=== PATIENT | male | born 1930 | race Caucasian/White ===

== ENCOUNTER 2017-11-21 15:54 | Inpatient (IN) ==
[2017-11-21] MEDS ORDERED: Tdap (Boostrix) Vaccine 0.5 ML SYRINGE IM ONE (16:21)
--- NOTE | 2017-11-21 16:24 | Emergency Department Note ---
Disposition Clinical Impression: Frail elderly, Fall, Dislocation, finger, Facial laceration, Nasal fracture, Foreign body, eye, Dehydration, Dementia, UTI (urinary tract infection), Abnormal EKG Disposition: Admitted As Inpatient General Adult HPI - General Chief complaint: ED Fall Stated complaint: fall Time Seen by Provider: 11/21/17 16:10 Source: patient, EMS Limitations: altered mental status - History of Present Illness HPI Narrative: 87-year-old male reports emergency department with his , there is concern for a fall. He was approaching his doctor's office and tripped and fell onto his face and injured his right hand. The patient was in his usual state of health prior to the fall. He has a history of dementia but is cared for at home by his . The patient denies antecedent chest pain or shortness of breath. There is no history of syncope. No seizure-like activity. No slurred speech prior or post no history of difficulty moving the arms or legs independently, no unilateral arm or leg weakness or numbness. No facial droop. Patient's last tetanus shot is unknown. Abrasions and lacerations are described on the face, finger deformity on the right. The patient denies abdominal pain shortness of breath back pain or lower extremity pain or left upper extremity pain. He is currently not anticoagulated. The patient has a history of dementia and is generally confused per his . She reports he was doing well until he tripped and fell. She describes a simple mechanical fall. Pain Scale: 4 - Related Data Home Medications Medication Instructions Recorded Confirmed Aspirin Enteric Coated [Aspirin EC] 81 mg PO QAM 11/12/14 11/21/17 Cholecalciferol (Vitamin D3) 1,000 unit PO BID 11/21/17 11/21/17 [Vitamin D] Donepezil HCl [Donepezil HCl Odt] 5 mg PO HS 11/21/17 11/21/17 Donepezil HCl [Donepezil HCl Odt] 10 mg SL HS 11/21/17 11/21/17 Ibuprofen [Advil] 200 mg PO DAILY PRN 11/21/17 11/21/17 Pravastatin Sodium [Pravastatin 10 mg PO DAILY 11/21/17 11/21/17 Sodium] Quetiapine Fumarate [Seroquel] 25 mg PO HS 11/21/17 11/21/17 Thiamine HCl [Vitamin B-1] 50 mg PO DAILY 11/21/17 11/21/17 Allergies Allergy/AdvReac Type Severity Reaction Status Date / Time codeine Allergy unknown Verified 08/28/17 17:26 Oxycodone [From Percocet] Allergy unknown Verified 08/28/17 17:26 tramadol Allergy Anaphylaxis Verified 08/28/17 17:26 All systems ED: reviewed and negative except as stated. Past Medical History - Past Medical History Medical history: Reports: arthritis, cancer, CVA, hypertension Surgical history: Reports: hip replacement Psychiatric history: Reports: no psych history - Social History Smoking Status: Never smoker Smokeless Tobacco Status: No Alcohol use: Reports: none Drug use: Reports: none Physical Exam - General Limitations: altered mental status General appearance: alert, in no apparent distress - Head Head exam: normocephalic, normal inspection, other (Multiple facial abrasions and scrapes are noted particularly on the right.) - Eye Eye exam: Present: normal appearance, PERRL, EOMI, miosis, other (No gross ocular abnormality, no evidence of penetrating wound particularly on the right, the globe appears to be intact, there is swelling and edema and a comprehensive ocular examination the patient is not possible.). Absent: scleral icterus, conjunctival injection, nystagmus - ENT ENT exam: normal exam, normal oropharynx, mucous membranes moist, TM's normal bilaterally, normal external ear exam - Neck Neck exam: Present: normal inspection, full ROM, trachea midline. Absent: tenderness, meningismus - Chest Chest inspection: Present: normal inspection, symmetric chest wall rise. Absent : tenderness - Respiratory Respiratory exam: Present: normal lung sounds bilaterally, respiratory distress. Absent: wheezes, stridor - Cardiovascular Cardiovascular exam: Present: regular rate, normal rhythm, normal heart sounds - Abdominal Exam Abdominal exam: Present: soft, Non-Tender, diminished bowel sounds. Absent: tenderness, distention, guarding, rebound, rigidity, normal bowel sounds - Extremities Exam Extremities exam: Present: normal inspection, full ROM, normal capillary refill , other (Minor abrasion right elbow, Right fourth digit obvious deformity at the proximal interphalangeal joint. All extremities are warm and well perfused show no significant trauma otherwise. There is a good range of motion throughout the ankles knees hips wrists elbows and shoulders. No evidence of neurovascular neuromuscular compromise in any extremity.). Absent: tenderness, pedal edema, joint swelling, calf tenderness - Expanded Lower Extremity Exam Neurovascular/Tendon exam: Present: normal capillary refill. Absent: pulse deficit, motor deficit, sensory deficit, tendon deficit, extremity cold to touch , pallor - Back Exam Back exam: Present: normal inspection, full ROM. Absent: tenderness, CVA tenderness (R), CVA tenderness (L), paraspinal tenderness, vertebral tenderness - Neurological Exam Neurological exam: Present: alert, CN II-XII intact, other (The patient is able to follow basic commands appropriately, an element of dementia is noted. [place] [address]). Absent: motor sensory deficit - Skin Skin exam: Present: warm, dry, normal color. Absent: rash, cyanosis, diaphoresis, erythema, pallor, mottled Course Vital Signs Temperature 97.7 F 11/21/17 16:07 Pulse Rate 78 11/21/17 16:07 Respiratory Rate 18 11/21/17 16:07 Blood Pressure 156/82 11/21/17 16:07 O2 Sat by Pulse Oximetry 99 11/21/17 16:07 Temperature 97.7 F 11/21/17 16:07 Pulse Rate 68 11/21/17 23:07 Respiratory Rate 18 11/21/17 23:07 Blood Pressure 178/81 11/21/17 23:07 O2 Sat by Pulse Oximetry 96 11/21/17 23:07 Oxygen Delivery Oxygen Delivery Room Air Procedures - Laceration Laceration 1 Site: face Side (If applicable): right Size (cm): 2 Description: linear Depth: simple, single layer Local Anesthetic: lidocaine 2% Pre-repair: wound explored, deep structures intact Skin layer closed with: nylon Size: 6-0 Number of sutures/efraín: 3 Technique: simple, interrupted Laceration 2 Site: face Size (cm): 2 (Nose) Depth: simple, single layer Local Anesthetic: lidocaine 2% Size: 6-0 Number of sutures/efraín: 3 Technique: simple, interrupted Laceration 3 Site: face Size (cm): 1 (Nose) Description: linear Local Anesthetic: lidocaine 2% Size: 6-0 Number of sutures/efraín: 1 - Orthopedic Joint Reduction Joint #1 Consent Obtained: verbal consent Joint Reduction Location: finger Analgesia: none Post-reduction neuro exam: intact Post-reduction vascular: intact Post Reduction X-Ray Obtained: Yes Post Reduction X-Ray Results: reduced Splint Applied: Yes (By wood technologist) Patient Tolerated Procedure: well, no complications Medical Decision Making - [facility] Narrative Medical decision making narrative: The patient was monitored in the emergency department and given IV fluids. Tetanus booster was also given. 3 simple wounds were repaired on the feces. Finger reduction performed without complication. Facial fractures noted on CT. Possible foreign body right eye noted on CT. External exam reveals no penetrating trauma. No gross foreign body is noted. Ultrasound confirms what appears to be a bright 3 mm object on or in the eye. The patient's extraocular muscles intact and gross vision is intact and there is no evidence of direct ocular trauma on clinical examination however the patient's right eye somewhat swollen and difficult to fully evaluate. The patient has changes suggestive of UTI on urinalysis. He is symptomatic. IV Ancef was given. The patient appears to be stable, a simple falls described no other acute injuries are noted. Given the patient is frail, elderly, fell, has multiple facial fractures and multiple lacerations as well as a finger dislocation and apparent changes suggestive of dehydration and associated UTI with ocular abnormalities of thought it would be appropriate to admit the patient the hospital. I discussed the case with our leather grainer Dr. Miguel who feels the patient can be best evaluated in his office tomorrow after discharge or the next day. I have reviewed this in detail with the patient's family who understand mandatory ophthalmologic follow-up is necessary. I have given him information regarding Dr. Miguel. I consult with the hospitalist on-call who has accepted the patient to his care. The family is highly agreeable. The patient is being admitted for further evaluation and treatment. - Lab Data Lab results reviewed: Yes I reviewed the patient's lab results. Result diagrams: 11/21/17 16:05 11/21/17 16:05 Lab Results 11/21/17 11/21/17 11/21/17 Range/Units 16:05 16:05 16:05 WBC 5.1 (4.3-11.1) K/mcL RBC 4.30 (4.19-5.50) M/mcL Hgb 13.9 (12.9-16.9) g/dL Hct 41.0 (37.5-50.1) % MCV 95.3 (83.0-100.0) fL MCH 32.3 (28.0-33.3) pg MCHC 33.9 (31.6-35.5) g/dL RDW 13.5 (11.5-14.5) % Plt Count 153 (140-400) K/mcL MPV 10.0 (9.4-12.4) fL Immature Gran % 0.4 (0-4) % Seg Neutrophils % 74.3 % Lymphocytes % 17.4 % Monocytes % 6.7 % Eosinophils % 1.0 % Basophils % 0.2 % Neutrophils # 3.8 (1.6-8.9) K/mcL Lymphocytes # 0.9 (0.6-4.6) K/mcL Monocytes # 0.3 (0.0-1.3) K/mcL Eosinophils # 0.1 (0.0-0.6) K/mcL Basophils # 0.0 (0.0-0.2) K/mcL PT 12.5 H (9.4-12.1) Seconds INR 1.1 APTT 29.0 (26.0-36.0) Seconds Sodium 140 (136-145) mEq/L Potassium 4.2 (3.5-5.1) mEq/L Chloride 106 (98-107) mEq/L Carbon Dioxide 30 H (23-29) mEq/L BUN 37 H (8-23) mg/dL Creatinine 1.56 H (0.70-1.30) mg/dL Est GFR ( Amer) 51 L (> 60) Est GFR (Non-Af Amer) 42 L (> 60) BUN/Creatinine Ratio 24 (6-26) Glucose 141 H (70-105) mg/dL Calculated Osmolality 301 H (280-300) Calcium 9.8 (8.6-10.3) mg/dL Total Bilirubin 0.8 (0.3-1.0) mg/dL AST 22 (13-39) Units/L ALT 12 (7-52) Units/L Alkaline Phosphatase 56 (34-104) Units/L Troponin I < 0.03 (< 0.04) ng/mL Serum Total Protein 6.2 L (6.4-8.9) g/dL Albumin 4.0 (3.5-5.7) g/dL Globulin 2.2 L (2.4-3.5) g/dL Albumin/Globulin Ratio 1.8 (1.1-2.2) Urine Color (Yellow) Urine Clarity (Clear) Urine pH (5.0-8.0) pH Units Ur Specific [place] (1.010-1.025) Urine Protein (Neg-Trace) mg/dL Urine Glucose (UA) (Normal) mg/dL Urine Ketones (Negative) mg/dL Urine Blood (Negative) Urine Nitrite (Negative) Urine Bilirubin (Negative) Urine Urobilinogen (Normal) mg/dL Ur Leukocyte Esterase (Negative) Urine Microscopic RBC (0-3) per hpf Urine Microscopic WBC (0-3) per hpf Ur Squamous Epith Cells (None-Few) per lpf Urine Bacteria (None-Few) per hpf Hyaline Casts (None-Few) per lpf Ur Culture Indicated? (NO) 11/21/17 11/21/17 Range/Units 21:10 21:28 WBC (4.3-11.1) K/mcL RBC (4.19-5.50) M/mcL Hgb (12.9-16.9) g/dL Hct (37.5-50.1) % MCV (83.0-100.0) fL MCH (28.0-33.3) pg MCHC (31.6-35.5) g/dL RDW (11.5-14.5) % Plt Count (140-400) K/mcL MPV (9.4-12.4) fL Immature Gran % (0-4) % Seg Neutrophils % % Lymphocytes % % Monocytes % % Eosinophils % % Basophils % % Neutrophils # (1.6-8.9) K/mcL Lymphocytes # (0.6-4.6) K/mcL Monocytes # (0.0-1.3) K/mcL Eosinophils # (0.0-0.6) K/mcL Basophils # (0.0-0.2) K/mcL PT (9.4-12.1) Seconds INR APTT (26.0-36.0) Seconds Sodium (136-145) mEq/L Potassium (3.5-5.1) mEq/L Chloride (98-107) mEq/L Carbon Dioxide (23-29) mEq/L BUN (8-23) mg/dL Creatinine (0.70-1.30) mg/dL Est GFR ( Amer) (> 60) Est GFR (Non-Af Amer) (> 60) BUN/Creatinine Ratio (6-26) Glucose (70-105) mg/dL Calculated Osmolality (280-300) Calcium (8.6-10.3) mg/dL Total Bilirubin (0.3-1.0) mg/dL AST (13-39) Units/L ALT (7-52) Units/L Alkaline Phosphatase (34-104) Units/L Troponin I < 0.03 (< 0.04) ng/mL Serum Total Protein (6.4-8.9) g/dL Albumin (3.5-5.7) g/dL Globulin (2.4-3.5) g/dL Albumin/Globulin Ratio (1.1-2.2) Urine Color Yellow (Yellow) Urine Clarity Turbid A (Clear) Urine pH 6.5 (5.0-8.0) pH Units Ur Specific [place] 1.017 (1.010-1.025) Urine Protein 100 H (Neg-Trace) mg/dL Urine Glucose (UA) Normal (Normal) mg/dL Urine Ketones Trace H (Negative) mg/dL Urine Blood Moderate H (Negative) Urine Nitrite Negative (Negative) Urine Bilirubin Negative (Negative) Urine Urobilinogen Normal (Normal) mg/dL Ur Leukocyte Esterase Large H (Negative) Urine Microscopic RBC 5-15 H (0-3) per hpf Urine Microscopic WBC TNTC H (0-3) per hpf Ur Squamous Epith Cells Many H (None-Few) per lpf Urine Bacteria Many H (None-Few) per hpf Hyaline Casts None Seen (None-Few) per lpf Ur Culture Indicated? NO. A (NO)
[2017-11-21 17:07] LABS: Alanine Aminotransferase 12 Units/L (7-52); Albumin/Globulin Ratio 1.8 (1.1-2.2); Alkaline Phosphatase 56 Units/L (34-104); Aspartate Amino Transferase 22 Units/L (13-39); BUN/Creatinine Ratio 24 (6-26); Bilirubin,Total 0.8 mg/dL (0.3-1.0); Blood Urea Nitrogen 37 mg/dL (8-23); Calcium 9.8 mg/dL (8.6-10.3); Carbon Dioxide 30 mEq/L (23-29); Chloride 106 mEq/L (98-107); Globulin 2.2 g/dL (2.4-3.5); Glucose 141 mg/dL (70-105); Osmolality,Calculated 301 (280-300); Potassium 4.2 mEq/L (3.5-5.1); Sodium 140 mEq/L (136-145); Total Protein 6.2 g/dL (6.4-8.9); Troponin I < 0.03 ng/mL (< 0.04); eGFR For Non-African Americans 42 (> 60)
[2017-11-21 17:13] LABS: Basophils % 0.2 %; Eosinophils # 0.1 K/mcL (0.0-0.6); Hemoglobin 13.9 g/dL (12.9-16.9); Immature Granulocytes % 0.4 % (0-4); Lymphocytes # 0.9 K/mcL (0.6-4.6); Lymphocytes % 17.4 %; Mean Corpuscular HGB Conc 33.9 g/dL (31.6-35.5); Mean Corpuscular Hemoglobin 32.3 pg (28.0-33.3); Mean Corpuscular Volume 95.3 fL (83.0-100.0); Monocytes # 0.3 K/mcL (0.0-1.3); Monocytes % 6.7 %; Neutrophils # 3.8 K/mcL (1.6-8.9); Platelet Count 153 K/mcL (140-400); Red Cell Distribution Width 13.5 % (11.5-14.5); Segmented Neutrophils % 74.3 %
[2017-11-21 17:20] LABS: INR 1.1; Prothrombin Time 12.5 Seconds (9.4-12.1)
[2017-11-21] MEDS ORDERED: 0.9 % Sodium Chloride 1,000 ML IVC ONE (17:59)
[2017-11-21] MEDS ORDERED: Lidocaine -MPF 2% 5 ML VIAL ONE (18:40)
[2017-11-21 21:21] LABS: Bilirubin,Urine Negative (Negative); Blood,Urine Moderate (Negative); Clarity,Urine Turbid (Clear); Color,Urine Yellow (Yellow); Glucose,Urine (UA) Normal (Normal); Ketones,Urine Trace mg/dL (Negative); Leukocyte Esterase,Urine Large (Negative); Nitrite,Urine Negative (Negative); PH,Urine 6.5 pH Units (5.0-8.0); Protein,Urine 100 mg/dL (Neg-Trace); Specific Gravity,Urine 1.017 (1.010-1.025); Urobilinogen,Urine Normal (Normal)
[2017-11-21 21:22] LABS: Bacteria,Urine Many per hpf (None-Few); Squamous Epithelial Cell,Urine Many per lpf (None-Few); WBC,Urine TNTC per hpf (0-3)
[2017-11-21 21:36] LABS: Hyaline Casts,Urine None Seen per lpf (None-Few)
[2017-11-21] MEDS ORDERED: ceFAZolin 1,000 MG in Water for inj. (sterile) 20 ML 10 ML IVP ONE (21:40)
[2017-11-22] MEDS ORDERED: Naloxone 0.4 MG/ML INJ IVP PRN (00:20)
[2017-11-22] MEDS ORDERED: Acetaminophen 325 MG TABLET PO PRN (00:20)
[2017-11-22] MEDS ORDERED: 0.9 % Sodium Chloride 1,000 ML IVC SCH (00:30)
--- NOTE | 2017-11-22 01:08 | Internal Med History&Physical ---
<Yemi Arellano - Last Filed: 11/22/17 19:16> Time of Encounter: 05:30 Internal Medicine - H&P: Meds Aspirin Enteric Coated [Aspirin EC] 81 mg PO QAM 11/12/14 [History] Cholecalciferol (Vitamin D3) [Vitamin D] 1,000 unit PO BID 11/21/17 [History] Donepezil HCl [Donepezil HCl Odt] 5 mg PO HS 11/21/17 [History] Donepezil HCl [Donepezil HCl Odt] 10 mg SL HS 11/21/17 [History] Ibuprofen [Advil] 200 mg PO DAILY PRN 11/21/17 [History] Pravastatin Sodium 10 mg PO DAILY 11/21/17 [History] Quetiapine Fumarate [Seroquel] 25 mg PO HS 11/21/17 [History] Thiamine HCl [Vitamin B-1] 50 mg PO DAILY 11/21/17 [History] Allergy/AdvReac Type Severity Reaction Status Date / Time codeine Allergy unknown Verified 08/28/17 17:26 Oxycodone [From Percocet] Allergy unknown Verified 08/28/17 17:26 tramadol Allergy Anaphylaxis Verified 08/28/17 17:26 - Constitutional Vitals: Temp Pulse Resp BP Pulse Ox 98.3 F 78 15 180/79 98 11/22/17 18:33 11/22/17 18:33 11/22/17 18:33 11/22/17 18:33 11/22/17 18:33 Internal Med - H&P Results - Labs CBC & Chem 7: 11/22/17 16:01 11/22/17 16:01 Labs: Short CBC 11/22/17 Range/Units 16:01 WBC 5.5 (4.3-11.1) K/mcL Hgb 12.5 L (12.9-16.9) g/dL Hct 36.3 L (37.5-50.1) % Plt Count 130 L (140-400) K/mcL Neutrophils # 4.4 (1.6-8.9) K/mcL BMP 11/22/17 16:01 Sodium 139 Potassium 3.8 Chloride 109 H Carbon Dioxide 25 BUN 28 H Creatinine 1.09 Glucose 130 H Calcium 9.0 Cardiac Enzymes 11/21/17 Range/Units 21:28 Troponin I < 0.03 (< 0.04) ng/mL Urine 11/21/17 Range/Units 21:10 Urine Color Yellow (Yellow) Urine Clarity Turbid A (Clear) Urine pH 6.5 (5.0-8.0) pH Units Ur Specific Daisy 1.017 (1.010-1.025) Urine Protein 100 H (Neg-Trace) mg/dL Urine Glucose (UA) Normal (Normal) mg/dL - Impressions ITS Impressions Hand X-Ray 11/21/17 16:19 IMPRESSION: Dislocated 4th PIP joint. No acute bony abnormality D/ / Jose Carvajal MD / Jose Carvajal MD Interpreting Provider: Jose Carvajal MD Cervical Spine CT 11/21/17 16:20 IMPRESSION: No acute abnormality of the cervical spine. Grossly enlarged right lobe of the thyroid is incompletely evaluated this CT. Follow-up is recommended as described below RECOMMENDATIONS: Managing Incidental Thyroid Nodule Detected at CT or MRI or US 1. Further evaluation by thyroid Ultrasound recommended for these incidental nodules: Patient Age 18 years or less - Nodule of any size Patient Age 19-34 years old - Nodule 1 cm in size or greater Patient Age 35 years or more - Nodule 1.5 cm in size or greater 2. Follow up thyroid ultrasound also recommend in these scenarios - Solitary nodule with high risk imaging features (locally invasive nodule or suspicious lymph nodes) - Heterogeneous, enlarged thyroid gland. - Increased uptake on PET 3. No further imaging is recommended in the following scenarios - Any nodule not meeting above criteria. - Those patients with limited life expectancy or significant co-morbidities. Note: These recommendations do not apply to pts. w/ increased risk for thyroid cancer or pts. with symptomatic thyroid disease. Recommendations for f/u of Incidental Thyroid Nodules (ITN) found on CT, MR, NM and Extrathyroidal US are based upon the ACR white paper and [employer] 3-tiered system for managing ITNs: J Am Misael Radiol. 2015 Mar;12(2): 143-50 D/ / Jose Carvajal MD / Jose Carvajal MD Interpreting Provider: Jose Carvajal MD Head CT 11/21/17 16:20 IMPRESSION: No acute intracranial abnormality. Diffuse atrophic changes with findings suggesting chronic microvascular ischemia Fractures of the superior nasal bones will be better evaluated on the CT of the face D/ / Jose Carvajal MD / Jose Carvajal MD Interpreting Provider: Jose Carvajal MD Chest X-Ray 11/21/17 16:21 IMPRESSION: No acute process in the chest. D/ / Fab Garcia / Fab Garcia Interpreting Provider: Fab Garcia Face CT 11/21/17 16:21 IMPRESSION: Right frontal scalp contusion and periorbital soft tissue swelling. 3 mm radiodensity along the inferolateral margin of the right globe (see annotated images) may represent a foreign body. Recommend direct visual inspection. Globes and orbits are otherwise intact. Comminuted displaced nasal bone and right maxillary frontal process fractures. Nondisplaced nasal septal fractures. D/ / Camilo Royal / Camilo Royal Interpreting Provider: Camilo Royal Hand X-Ray 11/21/17 17:00 IMPRESSION: Status post reduction of previously seen dislocation at the 4th proximal interphalangeal joint, now in anatomic alignment. No evidence of acute fracture or dislocation in the right hand. Soft tissue swelling. Degenerative changes. D/ / Waqar Reed MD / Waqar Reed MD Interpreting Provider: Waqar Reed MD - Assessment and plan (1) DVT prophylaxis Current Visit: Yes Status: Acute (2) Hypertension Current Visit: Yes Status: Chronic Qualifiers: Hypertension type: essential hypertension Qualified Code(s): I10 - Essential (primary) hypertension (3) Fall Current Visit: Yes Status: Acute Qualifiers: Encounter type: initial encounter Qualified Code(s): W19.XXXA - Unspecified fall, initial encounter (4) Dislocation, finger Current Visit: Yes Status: Resolved Qualifiers: Encounter type: initial encounter Qualified Code(s): S63.259A - Unspecified dislocation of unspecified finger, initial encounter (5) Facial laceration Current Visit: Yes Status: Acute Qualifiers: Encounter type: initial encounter Qualified Code(s): S01.81XA - Laceration without foreign body of other part of head, initial encounter (6) Nasal fracture Current Visit: Yes Status: Acute Qualifiers: Encounter type: initial encounter Fracture type: closed Qualified Code(s): S02.2XXA - Fracture of nasal bones, initial encounter for closed fracture (7) Foreign body, eye Current Visit: Yes Status: Acute Qualifiers: Encounter type: initial encounter Laterality: right Qualified Code(s): T15.91XA - Foreign body on external eye, part unspecified, right eye, initial encounter (8) Dehydration Current Visit: Yes Status: Acute (9) Dementia Current Visit: Yes Status: Chronic Qualifiers: Dementia type: Alzheimer's disease Alzheimer's disease onset: late-onset Dementia behavioral disturbance: without behavioral disturbance Qualified Code(s): G30.1 - Alzheimer's disease with late onset; F02.80 - Dementia in other diseases classified elsewhere without behavioral disturbance (10) UTI (urinary tract infection) Current Visit: Yes Status: Suspected Qualifiers: Urinary tract infection type: acute cystitis Hematuria presence: without hematuria Qualified Code(s): N30.00 - Acute cystitis without hematuria (11) CKD (chronic kidney disease) Current Visit: Yes Status: Chronic Qualifiers: Chronic kidney disease stage: stage 3 (moderate) Qualified Code(s): N18.3 - Chronic kidney disease, stage 3 (moderate) - Time Spent With Patient Total time spent is greater than 50% in coordination of care (as documented) at patient's floor/unit and/or counseling patient: - Attending Attestation Leonides Gore : 1930 [facility] DOWN TIME ATTENDING PHYSICIAN ATTESTATION: 11/22/17 05:30 am Attestation: I discussed the patient ME[place], past medical history, review of systems, lab data, imaging findings, and exam findings with Dr. Medina. I then saw and examined patient independently. Patient is confused, disoriented, and oriented only to self. There are no family members present. His nurse was present at the bedside and confirms this is his baseline according to family who was present earlier. Of note, patient has extensive bruising, laceration, and swelling to his face, most prominently in his nasal bone, upper lip, and right side of his face/maxilla. I reviewed the CAT scan images and the report which note nasal bone fracture as well as maxillary bone fracture. Unfortunately, these findings were not conveyed to us other than the laceration and foreign body in the orbit. Patient appears to have sustained trauma to his face from his fall, likely requiring oral maxillofacial surgery consultation which is not available at [facility]. We will ask ENT and ophthalmology to see patient in consultation. However, patient may need be transferred to a trauma center/tertiary care center for further surgical intervention if deemed appropriate and necessary per ENT and ophthalmology. Regarding his UTI and kidney injury, we will continue IV fluids and antibiotics. I asked his nurse to keep him nothing by mouth until he can be seen by the respective surgical specialties detailed above. Other than my comments above, I agree with Dr. Fierro assessment and plan. Yemi Arellano MD <Jeronimo Medina - Last Filed: 11/22/17 19:47> Date of Encounter: 11/21/17 Time of Encounter: 00:35 Internal Medicine - H&P: HPI Chief complaint: Fall Admitted From: Emergency Dept Plans for Post Hospital Care: Home History of present illness: Mr. Gore is a 87 year old male with a past medical history of arthritis, skin cancer, CVA, hypertension, Alzheimer's. Social history negative for tobacco use, alcohol use, drug use. Family history noncontributory. Mr. Gore presented to the emergency department after a mechanical fall outside his primary care physician's office. According to himself and his she was walking up a slope and stumbled. He denies lightheadedness, presyncope, confusion or seizure activity before or after the fall. On presentation to the emergency department he was found to have multiple abrasions on the extremities, lacerations on the face. Hand x-ray demonstrated a dislocation of the right fourth proximal interphalangeal joint. This was externally reduced and reimaged in alignment and placement in a splint. Chest x-ray and cervical spine CT demonstrated no acute process. Head CT demonstrated chronic atrophic changes without acute process. CT of the face demonstrated right scalp contusion and right periorbital swelling, comminuted displaced nasal bone and right maxillary frontal process fractures, nondisplaced nasal septal fractures. There is also identified a 3 mm radiodensity on the lateral aspect of the right orbit possibly representing a foreign object, no foreign object was able to be found on physical exam. Patient arrived with vitals and normal limits and remained hemodynamically stable. Labs identified creatinine 1.56 but otherwise within normal limits. Urinalysis was positive for numerous white blood cells and leukocyte esterase indicating infection. Patient received multiple repairs to lacerations of the face, 1 L normal saline and 1 dose cefazolin. He will be admitted for observation and treatment of UTI. Past Med Surg Social Fam HX - Past Medical History Medical history: arthritis, cancer, CVA, hypertension Additional medical history: skin cancer Psychiatric history: no psych history - Past Surgical History Surgical History: hip replacement Additional surgical history: bilateral hip replacement - Social History Smoking Status: Never smoker Smokeless Tobacco Status: No Alcohol use: none Drug use: none - Family History Mother Living Status: Hx Family Cancer: Yes (breast) - Additional Family History Additional family history: Family history otherwise noncontributory ROS unobtainable: due to mental status All Systems PM: A 10-system review of systems was performed and is negative for pertinent findings except as documented above in the HPI. Review of systems: Patient denied chest pain or shortness of breath but review of systems was otherwise unobtainable secondary to patient's diminished ability to communicate - Constitutional Vitals: Temp Pulse Resp BP Pulse Ox 98.7 F 78 16 190/110 99 11/21/17 23:40 11/21/17 23:40 11/21/17 23:40 11/21/17 23:40 11/21/17 23:40 Exam: Patient in no acute distress Alert and oriented to person, place, partially situation, not time Normal affect Cranial nerves II through XII appear intact Pupils equal and reactive to light Mucous membranes intact There is an Reuben bandage wrapped around the circumference of the head Scalp appears to be free of contusions or wounds There are multiple lacerations, abrasions, contusions to the face including the bridge of the nose and inferior right periorbital region None of the wounds are actively bleeding and any significant lacerations are repaired with sutures There are multiple other abrasions to the right shoulder, bilateral knees, right elbow Heart in regular rate and rhythm without murmur or gallop Lungs significantly diminished diffusely, no wheeze or rales or rhonchi Abdomen soft and nontender with normal bowel sounds present Bilateral lower extremities nonedematous Skin warm and dry Internal Med - H&P Results - Labs CBC & Chem 7: 11/22/17 16:01 11/22/17 16:01 - Assessment and plan (1) Fall Current Visit: Yes Status: Acute Assessment and plan: Patient presented secondary to mechanical fall He denies any lightheadedness, chest pain, shortness of breath, syncope, seizure activity prior to or following the fall CT head in the ED was negative for acute process, demonstrated chronic atrophic changes Vitals vitals and labs stable on presentation and admission Likely mechanical fall, possibly associated with UTI/Dehydration, differential includes syncope, CVA, seizure Plan CT head negative with no further suspicion for stroke Family present denied syncope or seizure activity We will treat UTI and dehydration PT/OT consult Telemetry ACHS glucose checks ENT consult Optho consult Continue to monitor Qualifiers: Encounter type: initial encounter Qualified Code(s): W19.XXXA - Unspecified fall, initial encounter (2) Dislocation, finger Current Visit: Yes Status: Resolved Assessment and plan: On presentation right fourth proximal interphalangeal joint was dislocated Confirmed by right hand x-ray Joint was externally reduced, confirmed by x-ray Hand placed in splint No further intervention required Qualifiers: Encounter type: initial encounter Qualified Code(s): S63.259A - Unspecified dislocation of unspecified finger, initial encounter (3) Facial laceration Current Visit: Yes Status: Acute Assessment and plan: Patient sustained multiple abrasions and lacerations to the face in the fall Patient is not currently on any anticoagulation Lacerations were repaired with suturing No active bleeding on physical exam Continue proper wound care Qualifiers: Encounter type: initial encounter Qualified Code(s): S01.81XA - Laceration without foreign body of other part of head, initial encounter (4) Nasal fracture Current Visit: Yes Status: Acute Assessment and plan: Multiple fractures of the nasal bone and right maxillary bone noted on CT face Patient's extraocular movements intact, nasal airway secure Patient not complaining of pain or instability at this time Swelling is minimal and nonobstructing eyes or nose or mouth No active bleeding noted on imaging or physical exam No intervention recommended at this time, continue to monitor Qualifiers: Encounter type: initial encounter Fracture type: closed Qualified Code(s) : S02.2XXA - Fracture of nasal bones, initial encounter for closed fracture (5) Foreign body, eye Current Visit: Yes Status: Acute Assessment and plan: 3 mm radiodensity located in the right periorbital region identified on facial CT Possibly foreign body Object is not able to be located on physical exam Patient is not complaining of eye pain and site and extraocular movements are intact No intervention recommended at this time Ophthalmology contacted from ED who recommended outpatient follow-up Qualifiers: Encounter type: initial encounter Laterality: right Qualified Code(s): T15.91XA - Foreign body on external eye, part unspecified, right eye, initial encounter (6) Dehydration Current Visit: Yes Status: Acute Assessment and plan: Family states it is difficult to get patient to drink water at home Mucous membranes appear dry, patient clinically appears volume depleted Likely cause of TRESA and UTI Plan MIVF NS 100ml/hr x 2 bags Counseling on appropriate water consumption at home (7) Dementia Current Visit: Yes Status: Chronic Assessment and plan: Patient has previous diagnosis of Alzheimer's dementia Family states he gets confused sometimes On exam patient is alert and oriented to person, place, partially situation, not time According to family he appears to be at his baseline Continue home medications of donepezil and Seroquel Qualifiers: Dementia type: Alzheimer's disease Alzheimer's disease onset: late-onset Dementia behavioral disturbance: without behavioral disturbance Qualified Code (s): G30.1 - Alzheimer's disease with late onset; F02.80 - Dementia in other diseases classified elsewhere without behavioral disturbance (8) UTI (urinary tract infection) Current Visit: Yes Status: Suspected Assessment and plan: UA demonstrated numerous white cells and leukocyte esterase positive Patient was given 1 dose of cefazolin in the ED Patient complaining of dysuria Urine appears cloudy and foul-smelling Plan fluid resuscitation Trimethoprim Sulfamethoxazole DS BID Urine cultures pending Qualifiers: Urinary tract infection type: acute cystitis Hematuria presence: without hematuria Qualified Code(s): N30.00 - Acute cystitis without hematuria (9) DVT prophylaxis Current Visit: Yes Status: Acute Assessment and plan: Intermittent pneumatic compression devices 3 times a day Will not use anticoagulation at this time due to recently acquired wounds and fracture (10) Hypertension Current Visit: Yes Status: Chronic Assessment and plan: Patient has history of chronic hypertension He apparently used to take medications but was taken off them We will continue to correct as necessary Blood pressure currently stable We will continue to monitor Qualifiers: Hypertension type: essential hypertension Qualified Code(s): I10 - Essential (primary) hypertension (11) TRESA (acute kidney injury) Current Visit: Yes Status: Acute Assessment and plan: Patient presented with creatinine 1.5 Baseline unknown Likely secondary to dehydration We will pursue gentle fluid rehydration and recheck in the morning - Time Spent With Patient Total time spent is greater than 50% in coordination of care (as documented) at patient's floor/unit and/or counseling patient:
[2017-11-22] MEDS ORDERED: *HR* FentaNYL (PF) 100 MCG/2 ML VIAL ONE (08:56)
[2017-11-22] MEDS ORDERED: Sulfamethoxazole/Trimeth DS 1 EACH TABLET PO SCH (09:00)
[2017-11-22] MEDS: *HR* FentaNYL (PF) 100 MCG/2 ML VIAL IVP PRN ×3 (09:02→20:49)
--- NOTE | 2017-11-22 11:59 | ENT - Consult Note ---
Addendum entered and electronically signed by Rebel Camacho DO 11/23/17 13:57: Attending attestation: I saw this patient independently with a [id number] evaluation. The patient is a 87-year-old gentleman who had a fall where he sustained trauma to the right side of his face. Because of his altered mental status due to baseline as well as UTI, he was unable to convey whether or not he was experiencing increased nasal congestion or any change in vision. The patient's history was given by his family members. On physical exam the patient had a laceration of the right nasal dorsum as well as the right cheek, there was a palpable step off fracture of the nasal dorsum on the right and there was concavity on the right complex the on the left nasal dorsum manipulation of the maxilla and the upper alveolar ridge did show stability of the midface. Occlusion appeared to be class I. Her was no evidence of septal hematoma or abscess. The CT scan was reviewed and demonstrated comminuted nasal bone fracture as well as a right frontal process of the maxillary fracture. There was no evidence of pterygoid plate fracture or orbital fracture. At this time surgical intervention is not indicated. We will have the patient follow up in 5-7 days as an outpatient for examination again. Original Note: Date of Encounter: 11/22/17 Time of Encounter: 11:30 Assessment and Plan (1) Facial fracture Current Visit: Yes Status: Acute CT reviewed with Dr. Camacho ENT surgeon. Fracture of the right frontal process of the maxillary without evidence of orbital fracture or pterygoid plate fracture. At this time, surgical intervention is not warranted. Patient to follow up outpatient in ENT office in 1 week for evaluation. Qualifiers: Encounter type: initial encounter Facial bone/location: unspecified site of maxillary bone Fracture type: closed Laterality: right Qualified Code(s): S02.40CA - Maxillary fracture, right side, initial encounter for closed fracture (2) Altered mental status Current Visit: No Status: Acute Patient's family confirm patient has baseline mental status confusion. Qualifiers: Altered mental status type: disorientation Qualified Code(s): R41.0 - Disorientation, unspecified (3) Fall Current Visit: Yes Status: Acute Qualifiers: Encounter type: initial encounter Qualified Code(s): W19.XXXA - Unspecified fall, initial encounter (4) Facial laceration Current Visit: Yes Status: Acute Patient is noted to have multiple lacerations to the face. Currently sutures are in place dry and intact. Recommend oral or IV antibiotic for risk of skin infection. Qualifiers: Encounter type: initial encounter Qualified Code(s): S01.81XA - Laceration without foreign body of other part of head, initial encounter (5) Nasal fracture Current Visit: Yes Status: Acute Nasal endoscopy with nasal laryngoscopy performed today at bedside. Patient demonstrates patency of bilateral nares with no evidence of septal hematoma. Patient with no active bleeding or blood clots noted to either nare or nasopharynx. Patient is noted to have palpable step-off of right nasal bone upon examination today. With depression of lateral right nasal sidewall. CT scan reviewed with Dr. Camacho ENT surgeon. Patient is noted to have non displaced septal fractures with Comminuted displaced nasal bone fracture. No further surgical intervention is warranted at this time recommend that patient follow up in outpatient ENT clinic in approximately 1 week. Qualifiers: Encounter type: initial encounter Fracture type: closed Qualified Code(s) : S02.2XXA - Fracture of nasal bones, initial encounter for closed fracture (6) Foreign body, eye Current Visit: Yes Status: Acute No foreign body visualized on physical examination today. CT scan images were reviewed with Dr. Camacho ENT surgeon and suspected foreign object is located in the globe of the right eye, which would require ophthalmology intervention. Patient has referral to ophthalmology and is to follow-up upon discharge. No further ENT intervention is warranted at this time. Qualifiers: Encounter type: initial encounter Laterality: right Qualified Code(s): T15.91XA - Foreign body on external eye, part unspecified, right eye, initial encounter History of Present Illness Consult date: 11/22/17 Reason for ENT Consult: other (facial trauma, facial bone fractures) Requesting physician: Yemi Arellano History of present illness: Patient is an 87 year old male admitted to hospital status post fall that occurred yesterday (11/21/17). Patient is a poor historian and pertinent his tory was obtained from family present at bedside today. Family confirms mental status with baseline confusion. Patient's reports patient was ambulating onto concrete when he fell forward landing on his face. Patient was subsequently brought to [facility] where work up was completed including imaging of the head and face which demonstrated nasal bone, right maxillary frontal process fractures, and nasal septal fractures. ENT was consulted for further assessment of facial fractures. Patient also noted to have current UTI with dehydration. Past Med Surg Social Fam HX - Past Medical History Medical history: arthritis, cancer, CVA, hypertension Additional medical history: skin cancer Psychiatric history: no psych history - Past Surgical History Surgical History: hip replacement Additional surgical history: bilateral hip replacement - Social History Smoking Status: Never smoker Smokeless Tobacco Status: No Alcohol use: none Drug use: none - Family History Mother Living Status: Hx Family Cancer: Yes (breast) Medications and Allergies Aspirin Enteric Coated [Aspirin EC] 81 mg PO QAM 11/12/14 [History] Cholecalciferol (Vitamin D3) [Vitamin D] 1,000 unit PO BID 11/21/17 [History] Donepezil HCl [Donepezil HCl Odt] 5 mg PO HS 11/21/17 [History] Donepezil HCl [Donepezil HCl Odt] 10 mg SL HS 11/21/17 [History] Ibuprofen [Advil] 200 mg PO DAILY PRN 11/21/17 [History] Pravastatin Sodium 10 mg PO DAILY 11/21/17 [History] Quetiapine Fumarate [Seroquel] 25 mg PO HS 11/21/17 [History] Thiamine HCl [Vitamin B-1] 50 mg PO DAILY 11/21/17 [History] Allergy/AdvReac Type Severity Reaction Status Date / Time codeine Allergy unknown Verified 08/28/17 17:26 Oxycodone [From Percocet] Allergy unknown Verified 08/28/17 17:26 tramadol Allergy Anaphylaxis Verified 08/28/17 17:26 ENT - ROS - EENT Nose, mouth and throat: nasal trauma, other (facial trauma) ENT Exam Initial Vital Signs Temp Pulse Resp BP Pulse Ox 97.7 F 78 18 156/82 99 11/21/17 16:07 11/21/17 16:07 11/21/17 16:07 11/21/17 16:07 11/21/17 16:07 - General physical appearance no distress - Eyes PERRL, normal ocular movement (Patient demonstrates difficulty with following commands. Patient unable to report any changes in vision, numbness, or pain. Patient with periorbital ecchymosis, edema, and laceration. No visualization of foreign body in right eye noted upon examination ) - ENT Other (Ears: Bilateral EACs clear. TMs normal bilaterally. Nose: Nares patent bilaterally confirmed by nasal endoscopy no evidence of nasal septal hematoma. No active bleeding or blood clots noted to either nare or nasal mucosa. Patient with palpable step off right nasal bone with depression of lateral right nasal sidewall noted. Right side of nose noted to be concave. No crepitus or subcutaneous air palpated. Oral: Teeth with several dental restorations, mucosa severely dry. Tongue midline. Jaw closure symmetrical with upper alveolar rid ge stability noted. Class 1 occlusion. Pharynx: Uvula noted to be midline. No issues of oropharynx noted. ) - Neck trachea midline, no lymphadectomy - Respiratory normal expansion, normal respiratory effort - Integumentary other (patient with multiple facial lacerations including laceration to the bridge of nose, cheek, and forehead with sutures noted to be intact. ) - Neurologic confused, disoriented, memory loss (oriented only to self) Exam Initial Vital Signs Temp Pulse Resp BP Pulse Ox 97.7 F 78 18 156/82 99 11/21/17 16:07 11/21/17 16:07 11/21/17 16:07 11/21/17 16:07 11/21/17 16:07 Results - Labs 11/22/17 16:01 11/22/17 16:01 Abnormal lab results PT 12.5 Seconds (9.4-12.1) H 11/21/17 16:05 Carbon Dioxide 30 mEq/L (23-29) H 11/21/17 16:05 BUN 37 mg/dL (8-23) H 11/21/17 16:05 Creatinine 1.56 mg/dL (0.70-1.30) H 11/21/17 16:05 Est GFR ( Amer) 51 (> 60) L 11/21/17 16:05 Est GFR (Non-Af Amer) 42 (> 60) L 11/21/17 16:05 Glucose 141 mg/dL (70-105) H 11/21/17 16:05 Calculated Osmolality 301 (280-300) H 11/21/17 16:05 Serum Total Protein 6.2 g/dL (6.4-8.9) L 11/21/17 16:05 Globulin 2.2 g/dL (2.4-3.5) L 11/21/17 16:05 Urine Clarity Turbid (Clear) A 11/21/17 21:10 Urine Protein 100 mg/dL (Neg-Trace) H 11/21/17 21:10 Urine Ketones Trace mg/dL (Negative) H 11/21/17 21:10 Urine Blood Moderate (Negative) H 11/21/17 21:10 Ur Leukocyte Esterase Large (Negative) H 11/21/17 21:10 Urine Microscopic RBC 5-15 per hpf (0-3) H 11/21/17 21:10 Urine Microscopic WBC TNTC per hpf (0-3) H 11/21/17 21:10 Ur Squamous Epith Cells Many per lpf (None-Few) H 11/21/17 21:10 Urine Bacteria Many per hpf (None-Few) H 11/21/17 21:10 Ur Culture Indicated? NO. (NO) A 11/21/17 21:10 Diabetes panel 11/21/17 Range/Units 16:05 Sodium 140 (136-145) mEq/L Potassium 4.2 (3.5-5.1) mEq/L Chloride 106 (98-107) mEq/L Carbon Dioxide 30 H (23-29) mEq/L BUN 37 H (8-23) mg/dL Creatinine 1.56 H (0.70-1.30) mg/dL Glucose 141 H (70-105) mg/dL Calcium 9.8 (8.6-10.3) mg/dL AST 22 (13-39) Units/L ALT 12 (7-52) Units/L Alkaline Phosphatase 56 (34-104) Units/L Albumin 4.0 (3.5-5.7) g/dL Calcium panel 11/21/17 Range/Units 16:05 Calcium 9.8 (8.6-10.3) mg/dL Albumin 4.0 (3.5-5.7) g/dL Pituitary panel 11/21/17 Range/Units 16:05 Sodium 140 (136-145) mEq/L Potassium 4.2 (3.5-5.1) mEq/L Chloride 106 (98-107) mEq/L Carbon Dioxide 30 H (23-29) mEq/L BUN 37 H (8-23) mg/dL Creatinine 1.56 H (0.70-1.30) mg/dL Glucose 141 H (70-105) mg/dL Calcium 9.8 (8.6-10.3) mg/dL Adrenal panel 11/21/17 Range/Units 16:05 Sodium 140 (136-145) mEq/L Potassium 4.2 (3.5-5.1) mEq/L Chloride 106 (98-107) mEq/L Carbon Dioxide 30 H (23-29) mEq/L BUN 37 H (8-23) mg/dL Creatinine 1.56 H (0.70-1.30) mg/dL Glucose 141 H (70-105) mg/dL Calcium 9.8 (8.6-10.3) mg/dL Total Bilirubin 0.8 (0.3-1.0) mg/dL AST 22 (13-39) Units/L ALT 12 (7-52) Units/L Alkaline Phosphatase 56 (34-104) Units/L Albumin 4.0 (3.5-5.7) g/dL All other labs normal. Consult Discharge Plan - Plan Referrals: Mandi Hsieh CNP [Primary Care Provider] - 11/28/17 2:15 pm ()
--- NOTE | 2017-11-22 12:11 | Internal Med Progress Note ---
Addendum entered and electronically signed by Judy Koo MD 11/23/17 18:09: I examined this patient and my medical decision-making was reviewed with the Resident Physician Dr. See on 11/22/17. I agree with the documented findings, disposition and treatment plan as described except to the extent set forth below. Mr. Gore is a 87 year old male with a past medical history of arthritis, skin cancer, CVA, hypertension, Alzheimer's presented to the emergency department after a mechanical fall outside his primary care physician's office. On presentation to the emergency department he was found to have multiple abrasions on the extremities, lacerations on the face. Hand x-ray demonstrated a dislocation of the right fourth proximal interphalangeal joint. This was externally reduced and re imaged in alignment and placement in a splint. Chest x-ray and cervical spine CT demonstrated no acute process. Head CT demonstrated chronic atrophic changes without acute process. CT of the face demonstrated right scalp contusion and right periorbital swelling, comminuted displaced nasal bone and right maxillary frontal process fractures. 3 mm radiodensity along the inferolateral margin of the right globe noticed. Patient was evaluated by ENT who recommend to continue IV abx for 10 days and follow-up with them as an outpa tient, no surgical interventions recommended. Patient is evaluated by speech started him on pured/ mechanically soft Diet. He is alert, awake and Oriented x 3. Denied any CP. Pain is tolerable with current meds. Talked to patient's family at bedside and explained to them about the current care. Gen: A, A< O x 3 Chest: Diminished BS b/l Heart: S1S2+ RRR No murmurs Head: contusion over rt side of scalp, nasal bridge area Original Note: Hospitalist Progress Note - Encounter Date of Encounter: 11/22/17 Time of Encounter: 09:00 - Subjective Interval History: Patient was seen and examined this morning at bedside. Patient is a poor histor gregory and unable to provide history of his fall. He has no family present at bedside to provide baseline or additional history. He is able to state he is not in any pain and is having no difficulty breathing. - Exam Vitals: Temp Pulse Resp BP Pulse Ox 98.7 F 78 16 190/110 99 11/21/17 23:40 11/21/17 23:40 11/21/17 23:40 11/21/17 23:40 11/21/17 23:40 Exam: Gen.: Vitals noted. No acute distress. AAOx1, resting comfortably in bed. HEENT: Normocephalic, multiple facial lacerations and ecchymosis. Soft tissue swelling. Able to move eyes without pain. MMM Cardiac: Irregularly rhythm, rate controlled, no murmur, +S1/S2 Pulmonary: CTA bilaterally, no wheezes, rales or rhonchi, equal chest expansion MSK: Unable assess full ROM due to mental status. Extremities: no BLE edema, nontender calf, no cyanosis or clubbing Neuro: A&Ox1, moves all extremities, no focal deficits appreciated. Psych: Quiet, responds to questions appropriately but delayed and is unable to remember the answers most times. - Assessment and Plan (1) Hypertension Current Visit: Yes Status: Chronic Assessment and Plan: Patient has history of chronic hypertension Was elevated overnight but EMR was down this AM and no vitals recorded. Vitals in paper chart improved. No home meds listed Will give hydralazine 10mg q6hrs PRN >160 We will continue to monitor (2) Fall Current Visit: Yes Status: Acute Assessment and Plan: Patient presented secondary to mechanical fall per family who was present at admission. He denies any lightheadedness, chest pain, shortness of breath, syncope, seizure activity prior to or following the fall CT head in the ED was negative for acute process, demonstrated chronic atrophic changes Vitals vitals and labs stable on presentation and admission Following CT scans show multiple facial bone fractures without displacement. Patient has no occular movement pain, denies pain Patient is not able to tell us etiology at this time and no family present. Likely mechanical fall, possibly associated with UTI/Dehydration, however will have to rule out syncope, CVA, seizure Patient reportedly lives at home with . Plan Will continue ampicillin for questionable UTI SW consulted for possible placement PT/OT consult Continue to monitor (3) Dislocation, finger Current Visit: Yes Status: Resolved Assessment and Plan: Resolved. On presentation right fourth proximal interphalangeal joint was dislocated Confirmed by right hand x-ray Joint was externally reduced, confirmed by x-ray Hand placed in splint No further intervention required (4) Facial laceration Current Visit: Yes Status: Acute Assessment and Plan: Patient sustained multiple abrasions and lacerations to the face in the fall Patient is not currently on any anticoagulation Lacerations were repaired with suturing in ED No active bleeding on physical exam Continue proper wound care (5) Nasal fracture Current Visit: Yes Status: Acute Assessment and Plan: Multiple fractures of the nasal bone and right maxillary bone noted on CT face Patient's extraocular movements intact, nasal airway secure Patient not complaining of pain or instability at this time Swelling is minimal and nonobstructing eyes or nose or mouth -- ENT was consulted today, appreciate recommendations Plan - Further recommendations per ENT - Continue to monitor for signs of airway obstruction or worsening occular symptoms (6) Foreign body, eye Current Visit: Yes Status: Acute Assessment and Plan: 3 mm radiodensity located in the right periorbital region identified on facial CT Possibly foreign body Object is not able to be located on physical exam Patient is not complaining of eye pain and site and extraocular movements are intact Ophthalmology contacted from ED who recommended outpatient follow-up (7) Dehydration Current Visit: Yes Status: Acute (8) Dementia Current Visit: Yes Status: Chronic Assessment and Plan: Patient has previous diagnosis of Alzheimer's dementia Family states he gets confused sometimes, not present for todays exam On exam patient is alert and oriented to person. Unsure baseline Continue home medications of donepezil and Seroquel (9) UTI (urinary tract infection) Current Visit: Yes Status: Suspected Assessment and Plan: UA demonstrated numerous white cells and leukocyte esterase positive, however many epithelial cells noted Patient was given 1 dose of cefazolin in the ED Started on unasyn, day 1 Patient complaining of dysuria on presentation Urine appears cloudy and foul-smelling Plan fluid resuscitation Continue unasyn Urine cultures ordered and pending (10) CKD (chronic kidney disease) Current Visit: Yes Status: Chronic Assessment and Plan: - Baseline Cr appears to be around 1.5 - BUN/Cr on admission 37/1.56 - Appears to be around baseline - Did get fluids from ED and is receiving maintenence fluids now. - Echocardiogram in November 2014 shows EF 65% and mild diastolic dysfunction. Plan - Will change fluids to 0.45 D5W - Continue to monitor and avoid nephrotoxins. (11) DVT prophylaxis Current Visit: Yes Status: Acute Assessment and Plan: SCDs - Time Spent with Patient Total time spent is greater than 50% in coordination of care (as documented) at patient's floor/unit and/or counseling patient: Internal Medicine: Result - Labs CBC & Chem 7: 11/21/17 16:05 11/21/17 16:05 Labs: Short CBC 11/21/17 Range/Units 16:05 WBC 5.1 (4.3-11.1) K/mcL Hgb 13.9 (12.9-16.9) g/dL Hct 41.0 (37.5-50.1) % Plt Count 153 (140-400) K/mcL Neutrophils # 3.8 (1.6-8.9) K/mcL BMP 11/21/17 16:05 Sodium 140 Potassium 4.2 Chloride 106 Carbon Dioxide 30 H BUN 37 H Creatinine 1.56 H Glucose 141 H Calcium 9.8 Cardiac Enzymes 11/21/17 11/21/17 Range/Units 16:05 21:28 Troponin I < 0.03 < 0.03 (< 0.04) ng/mL Liver Function 11/21/17 Range/Units 16:05 Total Bilirubin 0.8 (0.3-1.0) mg/dL AST 22 (13-39) Units/L ALT 12 (7-52) Units/L Alkaline Phosphatase 56 (34-104) Units/L Albumin 4.0 (3.5-5.7) g/dL Urine 11/21/17 Range/Units 21:10 Urine Color Yellow (Yellow) Urine Clarity Turbid A (Clear) Urine pH 6.5 (5.0-8.0) pH Units Ur Specific [place] 1.017 (1.010-1.025) Urine Protein 100 H (Neg-Trace) mg/dL Urine Glucose (UA) Normal (Normal) mg/dL - ABG Interpretation ABG results: PT/INR, D-dimer PT 12.5 Seconds (9.4-12.1) H 11/21/17 16:05 - Impressions Impressions Hand X-Ray 11/21/17 16:19 IMPRESSION: Dislocated 4th PIP joint. No acute bony abnormality D/ / Jose Carvajal MD / Jose Carvajal MD Interpreting Provider: Jose Carvajal MD Cervical Spine CT 11/21/17 16:20 IMPRESSION: No acute abnormality of the cervical spine. Grossly enlarged right lobe of the thyroid is incompletely evaluated this CT. Follow-up is recommended as described below RECOMMENDATIONS: Managing Incidental Thyroid Nodule Detected at CT or MRI or US 1. Further evaluation by thyroid Ultrasound recommended for these incidental nodules: Patient Age 18 years or less - Nodule of any size Patient Age 19-34 years old - Nodule 1 cm in size or greater Patient Age 35 years or more - Nodule 1.5 cm in size or greater 2. Follow up thyroid ultrasound also recommend in these scenarios - Solitary nodule with high risk imaging features (locally invasive nodule or suspicious lymph nodes) - Heterogeneous, enlarged thyroid gland. - Increased uptake on PET 3. No further imaging is recommended in the following scenarios - Any nodule not meeting above criteria. - Those patients with limited life expectancy or significant co-morbidities. Note: These recommendations do not apply to pts. w/ increased risk for thyroid cancer or pts. with symptomatic thyroid disease. Recommendations for f/u of Incidental Thyroid Nodules (ITN) found on CT, MR, NM and Extrathyroidal US are based upon the ACR white paper and [employer] 3-tiered system for managing ITNs: J Am Misael Radiol. 2015 Mar;12(2): 143-50 D/ / Jose Carvajal MD / Jose Carvajal MD Interpreting Provider: Jose Carvajal MD Head CT 11/21/17 16:20 IMPRESSION: No acute intracranial abnormality. Diffuse atrophic changes with findings suggesting chronic microvascular ischemia Fractures of the superior nasal bones will be better evaluated on the CT of the face D/ / Jose Carvajal MD / Jose Carvajal MD Interpreting Provider: Jose Carvajal MD Chest X-Ray 11/21/17 16:21 IMPRESSION: No acute process in the chest. D/ / Fab Garcia / Fab Garcia Interpreting Provider: Fab Garcia Face CT 11/21/17 16:21 IMPRESSION: Right frontal scalp contusion and periorbital soft tissue swelling. 3 mm radiodensity along the inferolateral margin of the right globe (see annotated images) may represent a foreign body. Recommend direct visual inspection. Globes and orbits are otherwise intact. Comminuted displaced nasal bone and right maxillary frontal process fractures. Nondisplaced nasal septal fractures. D/ / Camilo Royal / Camilo Royal Interpreting Provider: Camilo Royal Hand X-Ray 11/21/17 17:00 IMPRESSION: Status post reduction of previously seen dislocation at the 4th proximal interphalangeal joint, now in anatomic alignment. No evidence of acute fracture or dislocation in the right hand. Soft tissue swelling. Degenerative changes. D/ / Waqar Reed MD / Waqar Reed MD Interpreting Provider: Waqar Reed MD Consult Discharge Plan - Plan Referrals: Mandi Hsieh, [facility] [Primary Care Provider] - (YOUR APPOINTMENT HAS BEEN REQUESTED. OUR OFFICES WILL CALL YOU WITH AN APPOINTMENT TIME AND DATE.) (1) Hypertension Qualifiers: Hypertension type: essential hypertension Qualified Code(s): I10 - Essential (primary) hypertension (2) Fall Qualifiers: Encounter type: initial encounter Qualified Code(s): W19.XXXA - Unspecified fall, initial encounter (3) Dislocation, finger Qualifiers: Encounter type: initial encounter Qualified Code(s): S63.259A - Unspecified dislocation of unspecified finger, initial encounter (4) Facial laceration Qualifiers: Encounter type: initial encounter Qualified Code(s): S01.81XA - Laceration without foreign body of other part of head, initial encounter (5) Nasal fracture Qualifiers: Encounter type: initial encounter Fracture type: closed Qualified Code(s): S02.2XXA - Fracture of nasal bones, initial encounter for closed fracture (6) Foreign body, eye Qualifiers: Encounter type: initial encounter Laterality: right Qualified Code(s): T15.91XA - Foreign body on external eye, part unspecified, right eye, initial en counter (8) Dementia Qualifiers: Dementia type: Alzheimer's disease Alzheimer's disease onset: late-onset Dementia behavioral disturbance: without behavioral disturbance Qualified Code(s): G30.1 - Alzheimer's disease with late onset; F02.80 - Dementia in other diseases classified elsewhere without behavioral disturbance (9) UTI (urinary tract infection) Qualifiers: Urinary tract infection type: acute cystitis Hematuria presence: without hematuria Qualified Code(s): N30.00 - Acute cystitis without hematuria (10) CKD (chronic kidney disease) Qualifiers: Chronic kidney disease stage: stage 3 (moderate) Qualified Code(s): N18.3 - Chronic kidney disease, stage 3 (moderate)
[2017-11-22] MEDS: Aspirin Enteric Coated 81 MG Tablet PO SCH (13:10)
[2017-11-22] MEDS: Ampicillin/Sulbactam 1,500 MG in 0.9 % Sodium Chloride Mini Bag 100 ML IVPB SCH (13:39)
[2017-11-22] MEDS: D5% in 0.45% NACL 1,000 ML IVC SCH (15:12)
[2017-11-22 16:29] LABS: Basophils % 0.2 %; Eosinophils % 0.2 %; Hematocrit 36.3 % (37.5-50.1); Hemoglobin 12.5 g/dL (12.9-16.9); Immature Granulocytes % 0.2 % (0-4); Lymphocytes # 0.5 K/mcL (0.6-4.6); Lymphocytes % 8.9 %; Mean Corpuscular HGB Conc 34.4 g/dL (31.6-35.5); Mean Corpuscular Hemoglobin 32.1 pg (28.0-33.3); Mean Corpuscular Volume 93.1 fL (83.0-100.0); Mean Platelet Volume 9.7 fL (9.4-12.4); Monocytes # 0.6 K/mcL (0.0-1.3); Monocytes % 10.2 %; Neutrophils # 4.4 K/mcL (1.6-8.9); Platelet Count 130 K/mcL (140-400); Red Cell Distribution Width 13.2 % (11.5-14.5); Segmented Neutrophils % 80.3 %
[2017-11-22 16:47] LABS: BUN/Creatinine Ratio 26 (6-26); Blood Urea Nitrogen 28 mg/dL (8-23); Carbon Dioxide 25 mEq/L (23-29); Chloride 109 mEq/L (98-107); Glucose 130 mg/dL (70-105); Osmolality,Calculated 295 (280-300); Potassium 3.8 mEq/L (3.5-5.1); Sodium 139 mEq/L (136-145); eGFR For Non-African Americans > 60 (> 60)
--- NOTE | 2017-11-22 17:14 | ENT - Procedure Note ---
Date of procedure: 11/22/17 Pre-op diagnosis: septal fracture, dysphagia Post-op diagnosis: same Procedure: Nasal endoscopy/ Nasolaryngoscopy Fiberoptic Indications: septal and nasal bone fracture, dysphagia symptoms Anesthesia: 50:50 mixture of 4% topical lidocaine with 0.05% oxymetazoline. Findings: erythema noted to bilateral nasal mucosa, septum deviated to the right, no evidence of septal hematoma, bilateral nares patent to nasopharynx, unremarkable pharynx and larynx. True vocal cords with good movement and closure. Airway widely patent. No mass, polyps, or lesions noted. . Procedure: After informed discussion of the risks, benefits, and alternatives with indications as noted above, a fiberoptic nasopharyngoscopy and laryngoscopy was recommended. Nasal cavities were topically anesthetized and decongested with 4% lidocaine solution mixed with Afrin. After adequate time for decongestion and vasoconstriction flexible scope was easily advanced without difficulty into the right and left nasal cavities as well as into the nasal pharynx. Scope was now a dvanced distally. Visible oropharynx, including lateral pharyngeal bright and tongue base were examined. Larynx and hypopharynx were examined. The scope was then withdrawn and removed the patient tolerated this well without complications.. Tolerance: Good. Estimated Blood Loss: NIL. Anesthesia: topical Surgeon: Oly Cage Was there an community assistant present: No Estimated blood loss (cc): 0 Condition: stable
[2017-11-22] MEDS ORDERED: Ampicillin/Sulbactam 1,500 MG in 0.9 % Sodium Chloride Mini Bag 100 ML IVPB SCH (18:00)
[2017-11-23] MEDS: D5% in 0.45% NACL 1,000 ML IVC SCH ×3 (01:00→21:37)
[2017-11-23] MEDS: Ampicillin/Sulbactam 1,500 MG in 0.9 % Sodium Chloride Mini Bag 100 ML IVPB SCH ×2 (01:39→13:43)
--- NOTE | 2017-11-23 06:45 | Electrocardiograph Report ---
[facility] Test Date: 2017-11-21 Pat Name: Leonides Gore Department: [id number] Room: 3B41 Gender: M Assistant [employer] Manager: : [id number] Requested By: Ameya Arteaga Order Number: [id number] Reading MD: Kd Sweeney Measurements Intervals [place] Rate: 75 P: [place]: QRS: 60 QRSD: 88 T: 67 QT: 379 QTc: 424 Interpretive Statements Atrial flutter with predominant 3:1 AV block Ventricular premature complex Electronically Signed On 11-23-2017 6:44:14 EDT by Kd Sweeney
[2017-11-23] MEDS: *HR* FentaNYL (PF) 100 MCG/2 ML VIAL IVP PRN (09:52)
[2017-11-23] MEDS: Aspirin Enteric Coated 81 MG Tablet PO SCH (09:52)
[2017-11-23] MEDS ORDERED: Ketorolac 15 MG/ML VIAL IVP PRN (12:47)
--- NOTE | 2017-11-23 12:52 | Internal Med Progress Note ---
<Jose See - Last Filed: 11/23/17 13:13> Hospitalist Progress Note - Encounter Date of Encounter: 11/23/17 Time of Encounter: 12:50 - Subjective Interval History: Patient was seen and examined this morning at bedside. Patient is a poor historian and unable to provide history of his fall. He has no family present at bedside to provide baseline or additional history. He is able to state he is not in any pain and is having no difficulty breathing. - Exam Vitals: Temp Pulse Resp BP Pulse Ox 97.9 F 72 15 161/78 97 11/23/17 11:25 11/23/17 11:25 11/23/17 11:25 11/23/17 11:25 11/23/17 11:25 Exam: Gen.: Vitals noted. No acute distress. AAOx1, resting comfortably in bed. HEENT: Normocephalic, multiple facial lacerations and ecchymosis. Soft tissue swelling. Able to move eyes without pain. MMM Cardiac: Irregularly rhythm, rate controlled, no murmur, +S1/S2 Pulmonary: CTA bilaterally, no wheezes, rales or rhonchi, equal chest expansion MSK: Unable assess full ROM due to mental status. Extremities: no BLE edema, nontender calf, no cyanosis or clubbing. Right hand with soft wrap. Neuro: A&Ox1, moves all extremities, no focal deficits appreciated. Psych: Quiet, responds to questions appropriately but delayed and is unable to remember the answers most times. - Assessment and Plan (1) Fall Current Visit: Yes Status: Acute Assessment and Plan: Patient presented secondary to mechanical fall per family who was present at admission. He denies any lightheadedness, chest pain, shortness of breath, syncope, seizure activity prior to or following the fall CT head in the ED was negative for acute process, demonstrated chronic atrophic changes Vitals vitals and labs stable on presentation and admission Following CT scans show multiple facial bone fractures without displacement. Patient has no occular movement pain, denies pain Patient is not able to tell us etiology at this time and no family present. Likely mechanical fall, possibly associated with UTI/Dehydration. Patient reportedly lives at home with . Plan Will continue unasyn for questionable UTI and to cover for mouth navneet SW consulted for possible placement. Changed to inpatient today PT/OT consult, recommending SNF Continue to monitor (2) Hypertension Current Visit: Yes Status: Chronic Assessment and Plan: Patient has history of chronic hypertension Was elevated overnight but acceptable with PRN hydralazine No home meds listed Will continue hydralazine 10mg q6hrs PRN >160 We will continue to monitor (3) Dislocation, finger Current Visit: Yes Status: Resolved Assessment and Plan: Resolved. On presentation right fourth proximal interphalangeal joint was dislocated Confirmed by right hand x-ray Joint was externally reduced, confirmed by x-ray Hand placed in splint No further intervention required (4) Facial laceration Current Visit: Yes Status: Acute Assessment and Plan: Patient sustained multiple abrasions and lacerations to the face in the fall Patient is not currently on any anticoagulation Lacerations were repaired with suturing in ED No active bleeding on physical exam Continue proper wound care plan wound care, continue unasyn, day 2 (5) Nasal fracture Current Visit: Yes Status: Acute Assessment and Plan: Multiple fractures of the nasal bone and right maxillary bone noted on CT face Patient's extraocular movements intact, nasal airway secure Patient not complaining of pain or instability at this time Swelling is minimal and nonobstructing eyes or nose or mouth -- ENT was consulted, appreciate recommendations - ENT procedure note for nasolaryngoscopy, findings pending. Plan - Further recommendations per ENT - Continue to monitor for signs of airway obstruction or worsening occular symptoms (6) Foreign body, eye Current Visit: Yes Status: Acute Assessment and Plan: 3 mm radiodensity located in the right periorbital region identified on facial CT Possibly foreign body Object is not able to be located on physical exam Patient is not complaining of eye pain and site and extraocular movements are intact Ophthalmology contacted from ED who recommended outpatient follow-up (7) Dehydration Current Visit: Yes Status: Acute Assessment and Plan: Family states it is difficult to get patient to drink water at home Kidney function at baseline however PO intake continues to be poor. Plan Continue maintenance fluids Counseling on appropriate water consumption at home SW following for placement (8) Dementia Current Visit: Yes Status: Chronic Assessment and Plan: Patient has previous diagnosis of Alzheimer's dementia Family states he gets confused sometimes, not present for todays exam On exam patient is alert and oriented to person. Unsure baseline Continue home medications of donepezil and Seroquel (9) UTI (urinary tract infection) Current Visit: Yes Status: Suspected Assessment and Plan: UA demonstrated numerous white cells and leukocyte esterase positive Patient was given 1 dose of cefazolin in the ED Patient complaining of dysuria Urine appears cloudy and foul-smelling Plan fluids as above Continue unasyn, day2 Urine cultures pending (10) DVT prophylaxis Current Visit: Yes Status: Acute Assessment and Plan: Intermittent pneumatic compression devices 3 times a day Will not use anticoagulation at this time due to recently acquired wounds and fracture (11) CKD (chronic kidney disease) Current Visit: Yes Status: Chronic Assessment and Plan: - Baseline Cr appears to be around 1.5 - BUN/Cr on admission 37/1.56. Cr today of 1.09 - Appears to be around baseline - Did get fluids from ED and is receiving maintenence fluids now. - Echocardiogram in November 2014 shows EF 65% and mild diastolic dysfunction. Plan - Continue fluids while PO intake is poor - Continue to monitor and avoid nephrotoxins. - Time Spent with Patient Total time spent is greater than 50% in coordination of care (as documented) at patient's floor/unit and/or counseling patient: Internal Medicine: Result - Labs CBC & Chem 7: 11/22/17 16:01 11/22/17 16:01 Labs: Short CBC 11/22/17 Range/Units 16:01 WBC 5.5 (4.3-11.1) K/mcL Hgb 12.5 L (12.9-16.9) g/dL Hct 36.3 L (37.5-50.1) % Plt Count 130 L (140-400) K/mcL Neutrophils # 4.4 (1.6-8.9) K/mcL BMP 11/22/17 16:01 Sodium 139 Potassium 3.8 Chloride 109 H Carbon Dioxide 25 BUN 28 H Creatinine 1.09 Glucose 130 H Calcium 9.0 - ABG Interpretation ABG results: PT/INR, D-dimer PT 12.5 Seconds (9.4-12.1) H 11/21/17 16:05 - VTE Documentation of Mechanical Device: Intermittent pneumatic compression device Consult Discharge Plan - Plan Referrals: Mandi Hsieh, OUTSIDE [employer] SAL[employer] REPRESENTATIVE [Primary Care Provider] - 11/28/17 2:15 pm () <Judy Koo - Last Filed: 11/23/17 18:18> Hospitalist Progress Note - Exam Vitals: Temp Pulse Resp BP Pulse Ox 98.0 F 112 16 171/95 96 11/23/17 15:43 11/23/17 15:43 11/23/17 15:43 11/23/17 15:43 11/23/17 15:43 - Assessment and Plan (1) DVT prophylaxis Current Visit: Yes Status: Acute (2) Hypertension Current Visit: Yes Status: Chronic (3) Fall Current Visit: Yes Status: Acute (4) Dislocation, finger Current Visit: Yes Status: Resolved (5) Facial laceration Current Visit: Yes Status: Acute (6) Nasal fracture Current Visit: Yes Status: Acute (7) Foreign body, eye Current Visit: Yes Status: Acute (8) Dehydration Current Visit: Yes Status: Acute (9) Dementia Current Visit: Yes Status: Chronic (10) UTI (urinary tract infection) Current Visit: Yes Status: Suspected (11) CKD (chronic kidney disease) Current Visit: Yes Status: Chronic - Time Spent with Patient Total time spent is greater than 50% in coordination of care (as documented) at patient's floor/unit and/or counseling patient: Internal Medicine: Result - Labs CBC & Chem 7: 11/22/17 16:01 11/22/17 16:01 - ABG Interpretation ABG results: PT/INR, D-dimer PT 12.5 Seconds (9.4-12.1) H 11/21/17 16:05 - Attending Attestation I examined this patient and my medical decision-making was reviewed with the Resident Physician Dr. See on 11/22/17. I agree with the documented findings, disposition and treatment plan as described except to the extent set forth below. Mr. Gore is a 87 year old male with a past medical history of arthritis, skin cancer, CVA, hypertension, Alzheimer's presented to the emergency department aft er a mechanical fall outside his primary care physician's office. On presentation to the emergency department he was found to have multiple abrasions on the extremities, lacerations on the face. Hand x-ray demonstrated a dislocation of the right fourth proximal interphalangeal joint. This was exte rnally reduced and re imaged in alignment and placement in a splint. Chest x- ray and cervical spine CT demonstrated no acute process. Head CT demonstrated chronic atrophic changes without acute process. CT of the face demonstrated right scalp contusion and right periorbital swelling, comminuted displaced nasal bone and right maxillary frontal process fractures. 3 mm radiodensity along the inferolateral margin of the right globe noticed. Patient was evaluated by ENT who recommend to continue IV abx for 10 days and follow-up with them as an outpatient, no surgical interventions recommended. Patient is evaluated by speech started him on pured/ mechanically soft Diet. He is alert, awake and Oriented x 3. Denied any CP. Pain is tolerable with current meds. . He still is very minimal PO intake due to pain. Patient is still needed high level of care for another 2 to 3 days, so will switch him to full admission today. I did review my colleague Dr. Arellano' s H 7 P including HPI, PMH,PSH,FH,SH and ROS, no changes noticed. Talked to patient's family at bedside and explained to them about the current care Gen: A, A< O x 3 Chest: Diminished BS b/l Heart: S1S2+ RRR No murmurs Head: contusion over rt side of scalp, nasal bridge area <Jose See - Last Filed: 11/23/17 13:13> (1) Fall Qualifiers: Encounter type: initial encounter Qualified Code(s): W19.XXXA - Unspecified fall, initial encounter (2) Hypertension Qualifiers: Hypertension type: essential hypertension Qualified Code(s): I10 - Essential (primary) hypertension (3) Dislocation, finger Qualifiers: Encounter type: initial encounter Qualified Code(s): S63.259A - Unspecified dislocation of unspecified finger, initial encounter (4) Facial laceration Qualifiers: Encounter type: initial encounter Qualified Code(s): S01.81XA - Laceration without foreign body of other part of head, initial encounter (5) Nasal fracture Qualifiers: Encounter type: initial encounter Fracture type: closed Qualified Code(s): S02.2XXA - Fracture of nasal bones, initial encounter for closed fracture (6) Foreign body, eye Qualifiers: Encounter type: initial encounter Laterality: right Qualified Code(s): T15.91XA - Foreign body on external eye, part unspecified, right eye, initial encounter (8) Dementia Qualifiers: Dementia type: Alzheimer's disease Alzheimer's disease onset: late-onset Dementia behavioral disturbance: without behavioral disturbance Qualified Code(s): G30.1 - Alzheimer's disease with late onset; F02.80 - Dementia in other diseases classified elsewhere without behavioral disturbance (9) UTI (urinary tract infection) Qualifiers: Urinary tract infection type: acute cystitis Hematuria presence: without hematuria Qualified Code(s): N30.00 - Acute cystitis without hematuria (11) CKD (chronic kidney disease) Qualifiers: Chronic kidney disease stage: stage 3 (moderate) Qualified Code(s): N18.3 - Chronic kidney disease, stage 3 (moderate) <Judy Koo - Last Filed: 11/23/17 18:18> (2) Hypertension Qualifiers: Hypertension type: essential hypertension Qualified Code(s): I10 - Essential (primary) hypertension (3) Fall Qualifiers: Encounter type: initial encounter Qualified Code(s): W19.XXXA - Unspecified fall, initial encounter (4) Dislocation, finger Qualifiers: Encounter type: initial encounter Qualified Code(s): S63.259A - Unspecified dislocation of unspecified finger, initial encounter (5) Facial laceration Qualifiers: Encounter type: initial encounter Qualified Code(s): S01.81XA - Laceration without foreign body of other part of head, initial encounter (6) Nasal fracture Qualifiers: Encounter type: initial encounter Fracture type: closed Qualified Code(s): S02.2XXA - Fracture of nasal bones, initial encounter for closed fracture (7) Foreign body, eye Qualifiers: Encounter type: initial encounter Laterality: right Qualified Code(s): T15.91XA - Foreign body on external eye, part unspecified, right eye, initial encounter (9) Dementia Qualifiers: Dementia type: Alzheimer's disease Alzheimer's disease onset: late-onset Dementia behavioral disturbance: without behavioral disturbance Qualified Code(s): G30.1 - Alzheimer's disease with late onset; F02.80 - Dementia in other diseases classified elsewhere without behavioral disturbance (10) UTI (urinary tract infection) Qualifiers: Urinary tract infection type: acute cystitis Hematuria presence: without hematuria Qualified Code(s): N30.00 - Acute cystitis without hematuria (11) CKD (chronic kidney disease) Qualifiers: Chronic kidney disease stage: stage 3 (moderate) Qualified Code(s): N18.3 - Chronic kidney disease, stage 3 (moderate)
[2017-11-23] MEDS ORDERED: *HR* FentaNYL (PF) 100 MCG/2 ML VIAL IVP ONE (19:03)
[2017-11-23] MEDS ORDERED: Sulfamethoxazole/Trimeth DS 1 EACH TABLET PO ONE (19:03)
[2017-11-23] MEDS ORDERED: Aspirin Enteric Coated 81 MG Tablet PO ONE (19:03)
[2017-11-24] MEDS: Ampicillin/Sulbactam 1,500 MG in 0.9 % Sodium Chloride Mini Bag 100 ML IVPB SCH ×3 (01:58→19:54)
[2017-11-24] MEDS: D5% in 0.45% NACL 1,000 ML IVC SCH ×3 (01:58→19:49)
[2017-11-24] MEDS ORDERED: 0.9 % Sodium Chloride 500 ML IVC PRN (09:11)
[2017-11-24] MEDS: Aspirin Enteric Coated 81 MG Tablet PO SCH ×2 (09:34→09:57)
--- NOTE | 2017-11-24 15:42 | Internal Med Progress Note ---
Hospitalist Progress Note - Encounter Date of Encounter: 11/24/17 Time of Encounter: 13:00 - Subjective Interval History: Mr. Gore is a 87 year old male with a past medical history of arthritis, skin cancer, CVA, hypertension, Alzheimer's presented to the emergency department after a mechanical fall outside his primary care physician's office. On pres entation to the emergency department he was found to have multiple abrasions on the extremities, lacerations on the face. Hand x-ray demonstrated a dislocation of the right fourth proximal interphalangeal joint. This was externally reduced and re imaged in alignment and placement in a splint. Chest x-ray and cervical spine CT demonstrated no acute process. Head CT demonstrated chronic atrophic changes without acute process. CT of the face demonstrated right scalp contusion and right periorbital swelling, comminuted displaced nasal bone and right maxillary frontal process fractures. 3 mm radiodensity along the inferolateral margin of the right globe noticed. Patient was evaluated by ENT who recommend to continue IV abx for 10 days and follow-up with them as an outpatient, no surgical interventions recommended. Patient is evaluated by speech started him on pureed / mechanically soft Diet. Today He is alert, awake and Oriented x 3. Pain is tolerable with current meds. . He still has very minimal PO intake due to pain. He still looks very weak and lethargic. He did have sinus tachycardia this morning which improved with IVF - Exam Vitals: Temp Pulse Resp BP Pulse Ox 97.5 F L 63 12 136/75 97 11/24/17 11:36 11/24/17 11:36 11/24/17 11:36 11/24/17 11:36 11/24/17 11:36 Exam: Gen.: Vitals noted. No acute distress. AAOx3, resting comfortably in bed. HEENT: multiple facial lacerations and ecchymosis. Soft tissue swelling. Able to move eyes without pain. Cardiac: sinus tachycardia, no murmur, +S1/S2 Pulmonary: Diminished BS b/l, no wheezes, rales or rhonchi Extremities: no BLE edema, non tender calf, no cyanosis or clubbing. Right hand with soft wrap. Neuro: A, A, O x 3, moves all extremities, no focal deficits appreciated. Psych: Quiet, responds to questions appropriately but delayed and is unable to remember the answers most times. - Assessment and Plan (1) Nasal fracture Current Visit: Yes Status: Acute Assessment and Plan: Multiple fractures of the nasal bone and right maxillary bone noted on CT face Patient's extraocular movements intact, nasal airway secure - assessed by ENT Continue to monitor for signs of airway obstruction or worsening occular symptoms Out pt f/u with ENT cont empirical abx with Unasyn (2) Facial laceration Current Visit: Yes Status: Acute Assessment and Plan: Patient sustained multiple abrasions and lacerations to the face in the fall Patient is not currently on any anticoagulation Lacerations were repaired with suturing in ED wound care, continue empirical unasyn (3) Fall Current Visit: Yes Status: Acute Assessment and Plan: CT head in the ED was negative for acute process, demonstrated chronic atrophic changes CT of the face demonstrated right scalp contusion and right periorbital swelling, comminuted displaced nasal bone and right maxillary frontal process fractures. 3 mm radiodensity along the inferolateral margin of the right globe noticed. Patient was evaluated by ENT who recommend to continue IV abx for 10 days and follow-up with them as an outpatient, no surgical interventions recommended. PT/OT consult, recommending SNF Continue to monitor (4) Hypertension Current Visit: Yes Status: Chronic Assessment and Plan: Started on Metoprolol stable BP Will use hydralazine IV PRN too (5) DVT prophylaxis Current Visit: Yes Status: Acute Assessment and Plan: on SCD's (6) Dislocation, finger Current Visit: Yes Status: Resolved Assessment and Plan: Resolved. On presentation right fourth proximal interphalangeal joint was dislocated Confirmed by right hand x-ray Joint was externally reduced, confirmed by x-ray Hand placed in splint No further intervention required (7) Foreign body, eye Current Visit: Yes Status: Acute Assessment and Plan: 3 mm radiodensity located in the right periorbital region identified on facial CT Possibly foreign body Patient is not complaining of eye pain and site and extraocular movements are intact Ophthalmology contacted from ED who recommended outpatient follow-up (8) Dehydration Current Visit: Yes Status: Acute Assessment and Plan: Continue maintenance fluids (9) Dementia Current Visit: Yes Status: Chronic Assessment and Plan: Patient has previous diagnosis of Alzheimer's dementia Family states he gets confused sometimes, not present for todays exam On exam patient is alert and oriented to person. Unsure baseline Continue home medications of donepezil and Seroquel (10) UTI (urinary tract infection) Current Visit: Yes Status: Ruled-out Assessment and Plan: UA demonstrated numerous white cells and leukocyte esterase positive However urine cx - No growth so far (11) CKD (chronic kidney disease) Current Visit: Yes Status: Chronic Assessment and Plan: resolved - Time Spent with Patient Total time spent is greater than 50% in coordination of care (as documented) at patient's floor/unit and/or counseling patient: Internal Medicine: Result - Labs CBC & Chem 7: 11/22/17 16:01 11/22/17 16:01 - ABG Interpretation ABG results: PT/INR, D-dimer PT 12.5 Seconds (9.4-12.1) H 11/21/17 16:05 - VTE Documentation of Mechanical Device: Intermittent pneumatic compression device Consult Discharge Plan - Plan Referrals: Mandi Hsieh, BOTTOM BUFFER [Primary Care Provider] - 11/28/17 2:15 pm () (1) Nasal fracture Qualifiers: Encounter type: initial encounter Fracture type: closed Qualified Code(s): S02.2XXA - Fracture of nasal bones, initial encounter for closed fracture (2) Facial laceration Qualifiers: Encounter type: initial encounter Qualified Code(s): S01.81XA - Laceration without foreign body of other part of head, initial encounter (3) Fall Qualifiers: Encounter type: initial encounter Qualified Code(s): W19.XXXA - Unspecified fall, initial encounter (4) Hypertension Qualifiers: Hypertension type: essential hypertension Qualified Code(s): I10 - Essential (primary) hypertension (6) Dislocation, finger Qualifiers: Encounter type: initial encounter Qualified Code(s): S63.259A - Unspecified dislocation of unspecified finger, initial encounter (7) Foreign body, eye Qualifiers: Encounter type: initial encounter Laterality: right Qualified Code(s): T15.91XA - Foreign body on external eye, part unspecified, right eye, initial encounter (9) Dementia Qualifiers: Dementia type: Alzheimer's disease Alzheimer's disease onset: late-onset Dementia behavioral disturbance: without behavioral disturbance Qualified Code(s): G30.1 - Alzheimer's disease with late onset; F02.80 - Dementia in other diseases classified elsewhere without behavioral disturbance (10) UTI (urinary tract infection) Qualifiers: Urinary tract infection type: acute cystitis Hematuria presence: without hematuria Qualified Code(s): N30.00 - Acute cystitis without hematuria (11) CKD (chronic kidney disease) Qualifiers: Chronic kidney disease stage: stage 3 (moderate) Qualified Code(s): N18.3 - Chronic kidney disease, stage 3 (moderate)
[2017-11-24 16:07] LABS: Basophils % 0.2 %; Eosinophils # 0.1 K/mcL (0.0-0.6); Eosinophils % 2.1 %; Hematocrit 33.4 % (37.5-50.1); Hemoglobin 11.6 g/dL (12.9-16.9); Immature Granulocytes % 0.2 % (0-4); Lymphocytes # 0.8 K/mcL (0.6-4.6); Mean Corpuscular HGB Conc 34.7 g/dL (31.6-35.5); Mean Platelet Volume 9.8 fL (9.4-12.4); Monocytes # 0.6 K/mcL (0.0-1.3); Monocytes % 12.4 %; Neutrophils # 3.1 K/mcL (1.6-8.9); Platelet Count 133 K/mcL (140-400); Red Blood Count 3.63 M/mcL (4.19-5.50); Red Cell Distribution Width 13.2 % (11.5-14.5); Segmented Neutrophils % 67.1 %
[2017-11-24 16:27] LABS: BUN/Creatinine Ratio 16 (6-26); Blood Urea Nitrogen 20 mg/dL (8-23); Calcium 8.8 mg/dL (8.6-10.3); Carbon Dioxide 26 mEq/L (23-29); Chloride 106 mEq/L (98-107); Glucose 98 mg/dL (70-105); Magnesium 1.8 mg/dL (1.6-2.6); Osmolality,Calculated 285 (280-300); Potassium 3.8 mEq/L (3.5-5.1); Sodium 136 mEq/L (136-145); eGFR For Non-African Americans 54 (> 60)
[2017-11-25] MEDS: Ampicillin/Sulbactam 1,500 MG in 0.9 % Sodium Chloride Mini Bag 100 ML IVPB SCH ×4 (01:45→20:43)
[2017-11-25 07:58] LABS: Basophils % 0.2 %; Eosinophils # 0.2 K/mcL (0.0-0.6); Eosinophils % 3.3 %; Hematocrit 35.2 % (37.5-50.1); Hemoglobin 12.1 g/dL (12.9-16.9); Immature Granulocytes % 0.2 % (0-4); Lymphocytes # 0.9 K/mcL (0.6-4.6); Lymphocytes % 20.6 %; Mean Corpuscular HGB Conc 34.4 g/dL (31.6-35.5); Mean Corpuscular Hemoglobin 31.7 pg (28.0-33.3); Mean Corpuscular Volume 92.1 fL (83.0-100.0); Mean Platelet Volume 9.7 fL (9.4-12.4); Monocytes # 0.5 K/mcL (0.0-1.3); Monocytes % 11.8 %; Neutrophils # 2.9 K/mcL (1.6-8.9); Platelet Count 108 K/mcL (140-400); Red Blood Count 3.82 M/mcL (4.19-5.50); Red Cell Distribution Width 13.2 % (11.5-14.5); Segmented Neutrophils % 63.9 %
[2017-11-25 08:08] LABS: BUN/Creatinine Ratio 15 (6-26); Blood Urea Nitrogen 17 mg/dL (8-23); Calcium 8.4 mg/dL (8.6-10.3); Carbon Dioxide 28 mEq/L (23-29); Chloride 107 mEq/L (98-107); Glucose 95 mg/dL (70-105); Osmolality,Calculated 285 (280-300); Potassium 3.7 mEq/L (3.5-5.1); Sodium 137 mEq/L (136-145); eGFR For Non-African Americans > 60 (> 60)
[2017-11-25] MEDS: Aspirin Enteric Coated 81 MG Tablet PO SCH (10:50)
[2017-11-25] MEDS: D5% in 0.45% NACL 1,000 ML IVC SCH (10:51)
--- NOTE | 2017-11-25 14:42 | Internal Med Progress Note ---
Hospitalist Progress Note - Encounter Date of Encounter: 11/25/17 Time of Encounter: 14:00 - Subjective Interval History: Mr. Gore is a 87 year old male with a past medical history of arthritis, skin cancer, CVA, hypertension, Alzheimer's presented to the emergency department after a mechanical fall outside his primary care physician's office. On pres entation to the emergency department he was found to have multiple abrasions on the extremities, lacerations on the face. Hand x-ray demonstrated a dislocation of the right fourth proximal interphalangeal joint. This was externally reduced and re imaged in alignment and placement in a splint. Chest x-ray and cervical spine CT demonstrated no acute process. Head CT demonstrated chronic atrophic changes without acute process. CT of the face demonstrated right scalp contusion and right periorbital swelling, comminuted displaced nasal bone and right maxillary frontal process fractures. 3 mm radiodensity along the inferolateral margin of the right globe noticed. Patient was evaluated by ENT who recommend to continue IV abx for 10 days and follow-up with them as an outpatient, no surgical interventions recommended. Patient is evaluated by speech started him on pureed / mechanically soft Diet. Today He is more alert, awake and Oriented x 3. Pain is tolerable with current meds.He PO intake also better today . - Exam Vitals: Temp Pulse Resp BP Pulse Ox 97.8 F 59 15 146/72 96 11/25/17 11:00 11/25/17 11:00 11/25/17 11:00 11/25/17 11:00 11/25/17 11:00 Exam: Gen.: Vitals noted. No acute distress. AAOx3, resting comfortably in bed. HEENT: multiple facial lacerations and ecchymosis. Soft tissue swelling. Able to move eyes without pain. Cardiac: sinus tachycardia, no murmur, +S1/S2 Pulmonary: Diminished BS b/l, no wheezes, rales or rhonchi Extremities: no BLE edema, non tender calf, no cyanosis or clubbing. Right hand with soft wrap. Neuro: A, A, O x 3, moves all extremities, no focal deficits appreciated. Psych: Quiet, responds to questions appropriately but delayed and is unable to remember the answers most times. - Assessment and Plan (1) Nasal fracture Current Visit: Yes Status: Acute Assessment and Plan: Multiple fractures of the nasal bone and right maxillary bone noted on CT face Patient's extraocular movements intact, nasal airway secure - assessed by ENT Continue to monitor for signs of airway obstruction or worsening occular symptoms Out pt f/u with ENT cont empirical abx with Unasyn# 4/10 (2) Facial laceration Current Visit: Yes Status: Acute Assessment and Plan: Patient sustained multiple abrasions and lacerations to the face in the fall Patient is not currently on any anticoagulation Lacerations were repaired with suturing in ED wound care, continue empirical unasyn # 4/10 (3) Fall Current Visit: Yes Status: Acute Assessment and Plan: CT head in the ED was negative for acute process, demonstrated chronic atrophic changes CT of the face demonstrated right scalp contusion and right periorbital swelling, comminuted displaced nasal bone and right maxillary frontal process fractures. 3 mm radiodensity along the inferolateral margin of the right globe noticed. Patient was evaluated by ENT who recommend to continue IV abx for 10 days and follow-up with them as an outpatient, no surgical interventions recommended. PT/OT consult, recommending SNF Continue to monitor (4) Hypertension Current Visit: Yes Status: Chronic Assessment and Plan: Started on Metoprolol stable BP Will use hydralazine IV PRN too (5) DVT prophylaxis Current Visit: Yes Status: Acute Assessment and Plan: on SCD's (6) Dislocation, finger Current Visit: Yes Status: Resolved Assessment and Plan: Resolved. On presentation right fourth proximal interphalangeal joint was dislocated Confirmed by right hand x-ray Joint was externally reduced, confirmed by x-ray Hand placed in splint No further intervention required (7) Foreign body, eye Current Visit: Yes Status: Acute Assessment and Plan: 3 mm radiodensity located in the right periorbital region identified on facial CT Possibly foreign body Patient is not complaining of eye pain and site and extraocular movements are intact Ophthalmology contacted from ED who recommended outpatient follow-up (8) Dehydration Current Visit: Yes Status: Acute Assessment and Plan: Improving will cut back on IVF (9) Dementia Current Visit: Yes Status: Chronic Assessment and Plan: Patient has previous diagnosis of Alzheimer's dementia Family states he gets confused sometimes, not present for todays exam On exam patient is alert and oriented to person. Unsure baseline Continue home medications of donepezil and Seroquel Will start him on Haldol PO PRN for agitation (10) UTI (urinary tract infection) Current Visit: Yes Status: Ruled-out Assessment and Plan: UA demonstrated numerous white cells and leukocyte esterase positive However urine cx - No growth so far (11) CKD (chronic kidney disease) Current Visit: Yes Status: Chronic Assessment and Plan: resolved - Time Spent with Patient Total time spent is greater than 50% in coordination of care (as documented) at patient's floor/unit and/or counseling patient: Internal Medicine: Result - Labs CBC & Chem 7: 11/25/17 07:45 11/25/17 07:45 Labs: Short CBC 11/24/17 11/25/17 Range/Units 15:55 07:45 WBC 4.7 4.5 (4.3-11.1) K/mcL Hgb 11.6 L 12.1 L (12.9-16.9) g/dL Hct 33.4 L 35.2 L (37.5-50.1) % Plt Count 133 L 108 L (140-400) K/mcL Neutrophils # 3.1 2.9 (1.6-8.9) K/mcL BMP 11/24/17 11/25/17 15:55 07:45 Sodium 136 137 Potassium 3.8 3.7 Chloride 106 107 Carbon Dioxide 26 28 BUN 20 17 Creatinine 1.27 1.15 Glucose 98 95 Calcium 8.8 8.4 L - ABG Interpretation ABG results: PT/INR, D-dimer PT 12.5 Seconds (9.4-12.1) H 11/21/17 16:05 - VTE Documentation of Mechanical Device: Intermittent pneumatic compression device Consult Discharge Plan - Plan Referrals: Mandi Hsieh, [employer] [Primary Care Provider] - 11/28/17 2:15 pm () (1) Nasal fracture Qualifiers: Encounter type: initial encounter Fracture type: closed Qualified Code(s): S02.2XXA - Fracture of nasal bones, initial encounter for closed fracture (2) Facial laceration Qualifiers: Encounter type: initial encounter Qualified Code(s): S01.81XA - Laceration without foreign body of other part of head, initial encounter (3) Fall Qualifiers: Encounter type: initial encounter Qualified Code(s): W19.XXXA - Unspecified fall, initial encounter (4) Hypertension Qualifiers: Hypertension type: essential hypertension Qualified Code(s): I10 - Essential (primary) hypertension (6) Dislocation, finger Qualifiers: Encounter type: initial encounter Qualified Code(s): S63.259A - Unspecified dislocation of unspecified finger, initial encounter (7) Foreign body, eye Qualifiers: Encounter type: initial encounter Laterality: right Qualified Code(s): T15.91XA - Foreign body on external eye, part unspecified, right eye, initial encounter (9) Dementia Qualifiers: Dementia type: Alzheimer's disease Alzheimer's disease onset: late-onset Dementia behavioral disturbance: without behavioral disturbance Qualified Code(s): G30.1 - Alzheimer's disease with late onset; F02.80 - Dementia in other diseases classified elsewhere without behavioral disturbance (10) UTI (urinary tract infection) Qualifiers: Urinary tract infection type: acute cystitis Hematuria presence: without farhad turia Qualified Code(s): N30.00 - Acute cystitis without hematuria (11) CKD (chronic kidney disease) Qualifiers: Chronic kidney disease stage: stage 3 (moderate) Qualified Code(s): N18.3 - Chronic kidney disease, stage 3 (moderate)
[2017-11-25] MEDS ORDERED: D5% in 0.45% NACL 1,000 ML IVC SCH (19:00)
[2017-11-26] MEDS: Ampicillin/Sulbactam 1,500 MG in 0.9 % Sodium Chloride Mini Bag 100 ML IVPB SCH ×3 (01:24→14:27)
--- NOTE | 2017-11-26 07:50 | Internal Med Progress Note ---
Hospitalist Progress Note - Encounter Date of Encounter: 11/26/17 Time of Encounter: 07:50 - Exam Vitals: Temp Pulse Resp BP Pulse Ox 98.3 F 58 20 136/71 95 11/26/17 04:22 11/26/17 04:22 11/26/17 04:22 11/26/17 04:22 11/25/17 15:30 - Time Spent with Patient Total time spent is greater than 50% in coordination of care (as documented) at patient's floor/unit and/or counseling patient: Internal Medicine: Result - Labs CBC & Chem 7: 11/25/17 07:45 11/25/17 07:45 Labs: Short CBC 11/25/17 Range/Units 07:45 WBC 4.5 (4.3-11.1) K/mcL Hgb 12.1 L (12.9-16.9) g/dL Hct 35.2 L (37.5-50.1) % Plt Count 108 L (140-400) K/mcL Neutrophils # 2.9 (1.6-8.9) K/mcL BMP 11/25/17 07:45 Sodium 137 Potassium 3.7 Chloride 107 Carbon Dioxide 28 BUN 17 Creatinine 1.15 Glucose 95 Calcium 8.4 L - ABG Interpretation ABG results: PT/INR, D-dimer PT 12.5 Seconds (9.4-12.1) H 11/21/17 16:05 - VTE Documentation of Mechanical Device: Intermittent pneumatic compression device Consult Discharge Plan - Plan Referrals: Mnadi Hsieh CNP [Primary Care Provider] - 11/28/17 2:15 pm ()
[2017-11-26] MEDS: Aspirin Enteric Coated 81 MG Tablet PO SCH (09:07)
--- NOTE | 2017-11-26 13:45 | Discharge Summary ---
<Syeda Estes - Last Filed: 11/26/17 14:54> - NOTES TO OUTPATIENT PROVIDER Notes to Outpatient Provider: F/U with Ophthalmology and ENT Orders not resulted at time of discharge: Pending orders 11/21/17 16:20 CT 3D reconstruction [CT] Stat Date of Encounter: 11/26/17 Time of Encounter: 13:47 - Discharge Diagnosis (1) Facial laceration Priority: Primary Status: Acute Assessment and Plan: During fall, pt sustained multiple facial lacerations, abrasions - repaired with suturing in ED Pt not on anticoagulation PLAN: Cont wound care D/C Unasyn; Cont with Augmentin PO BID for 5 days Qualifiers: Encounter type: initial encounter Qualified Code(s): S01.81XA - Laceration without foreign body of other part of head, initial encounter (2) Fall Priority: Primary Status: Acute Assessment and Plan: Pt brought to ED s/p mechanical fall in home CT head - negative for acute process; demonstrated chronic atrophic changes CT face - right scalp contusion, right periorbital swelling; comminuted displaced nasal bone and right maxillary frontal process fractures; 3mm radiodensity along inferolteral margin of right globe noticed ENT eval recommended IV abx for 10 days and f/o outpatient; no surgical intervention recommended PLAN: F/U PT/OT consult Cont to Monitor Plan to DC to ECF Qualifiers: Encounter type: initial encounter Qualified Code(s): W19.XXXA - Unspecified fall, initial encounter (3) Foreign body, eye Priority: Secondary Status: Acute Assessment and Plan: CT Face: 3mm radiodensity located in right periorbital region - possibly foreign body Pt denies eye pain at this time; EOMI intact PLAN: Outpatient follow up with Opthalmology Qualifiers: Encounter type: initial encounter Laterality: right Qualified Code(s): T15.91XA - Foreign body on external eye, part unspecified, right eye, initial encounter (4) Nasal fracture Priority: Primary Status: Acute Assessment and Plan: Multiple fractures of nasal bone and right maxillary bone per CT face Per ENT assessment - EOMI, nasal airway secure Monitor for signs of airway obstruction / worsening ocular symptoms PLAN: Outpatient follow up with ENT D/c Unasyn; Start PO Augmentin BID for 5 more days Qualifiers: Encounter type: initial encounter Fracture type: closed Qualified Code(s): S02.2XXA - Fracture of nasal bones, initial encounter for closed fracture (5) Dementia Priority: Secondary Status: Chronic Assessment and Plan: Hx of Alzheimer's dementia AO x 1 today to person, but not place nor time PLAN: Cont home meds donepezil and seroquel Haldol PRN for agitation Qualifiers: Dementia type: Alzheimer's disease Alzheimer's disease onset: late-onset Dementia behavioral disturbance: without behavioral disturbance Qualified Code(s): G30.1 - Alzheimer's disease with late onset; F02.80 - Dementia in other diseases classified elsewhere without behavioral disturbance (6) Hypertension Priority: Secondary Status: Chronic Assessment and Plan: BP controlled and appropriate for age PLAN: Cont Metoprolol Comments: Stable BP Stable on medication PLAN: Cont Metoprolol Qualifiers: Hypertension type: essential hypertension Qualified Code(s): I10 - Essential (primary) hypertension (7) CKD (chronic kidney disease) Priority: Secondary Status: Resolved Assessment and Plan: Improving hydration status CKD Stage III Stable Qualifiers: Chronic kidney disease stage: stage 3 (moderate) Qualified Code(s): N18.3 - Chronic kidney disease, stage 3 (moderate) (8) Dehydration Priority: Secondary Status: Resolved Assessment and Plan: Vitals stable; Good Urine output Improving PLAN: D/C IVF (9) Dislocation, finger Priority: Secondary Status: Resolved Assessment and Plan: Upon presentation, 4th proximal interphalangeal joint dislocated; confirmed via XR Hand; reduced and confirmed with XR No further intervention required Qualifiers: Encounter type: initial encounter Qualified Code(s): S63.259A - Unspecified dislocation of unspecified finger, initial encounter (10) UTI (urinary tract infection) Priority: Secondary Status: Resolved Assessment and Plan: Pt c/o dysuria UA positive for leuk esterase and numerous WBCs Urine Cx negative at this time Qualifiers: Urinary tract infection type: acute cystitis Hematuria presence: without hematuria Qualified Code(s): N30.00 - Acute cystitis without hematuria (11) DVT prophylaxis Priority: Secondary Status: Chronic Assessment and Plan: Cont with SCDs Hospital course: Mr. Gore is a 87 year old male with PMHx arthritis, skin cancer, CVA, hypertension, Alzheimer's Disease who presents s/p fall sustaining multiple lacerations to face and abrasions to extremities. In ED, pt found to have dislocated 4th PIP joint on right hand which was successfully reduced. Lacs were repaired in ED. Pt given IV fluids, tetanus vaccine, and started on IV ancef due to positive UA. Cervical Spine CT revealed enlarged R. Lobe of Thyroid. Head CT indicated no acute intracranial abnormality, but did reveal diffuse atrophic changes and chronic microvascular ischemia. Chest XR demonstrated no acute process. CT of face indicated right scalp contusion and right periorbital swelling along with 3mm radiodense along infralateral margin of right globe, and comminuted displaced nasal bone and right maxillary frontal process fractures. ENT evaluated patient and recommended IV abx for 10 days due to lacerations and abrasions, but did not recommend surgical interventions. Ophthalmology consulted due to foreign body of eye and recommended outpatient follow up. Urine cx was negative and IV ancef discontinued. Pt remained stable during hospital course. Speech therapy evaluated patient and began him on pureed/ mechanically soft diet. Cleared for medical discharge to care home facility which ever location he is accepted. Plan discussed with patient's family. Discharge discussed with: family, social work - Time Spent with Patient Total time spent providing and/or coordinating discharge services: Less than 30 minutes - Discharge Medications Prescriptions: RX: Amoxicillin/Clavulanate [Augmentin] 875 mg PO BIDWM 5 Days #9 tablet Home Medications: RX: Aspirin Enteric Coated [Aspirin EC] 81 mg PO QAM 11/12/14 [History] RX: Cholecalciferol (Vitamin D3) [Vitamin D3] 1,000 unit PO BID 11/21/17 [History] RX: Donepezil HCl [Donepezil HCl Odt] 5 mg PO HS 11/21/17 [History] RX: Donepezil HCl [Donepezil HCl Odt] 10 mg SL HS 11/21/17 [History] RX: Ibuprofen [Advil] 200 mg PO DAILY PRN 11/21/17 [History] RX: Pravastatin Sodium 10 mg PO DAILY 11/21/17 [History] RX: Quetiapine Fumarate [Seroquel] 25 mg PO HS 11/21/17 [History] RX: Thiamine HCl [Vitamin B-1] 50 mg PO DAILY 11/21/17 [History] RX: Amoxicillin/Clavulanate [Augmentin] 875 mg PO BIDWM 5 Days #9 tablet 11/26/17 [Rx] RX: Metoprolol [Lopressor] 25 mg PO BID tablet 11/26/17 [Rx] Allergies/Adverse Reactions: Allergy/AdvReac Type Severity Reaction Status Date / Time codeine Allergy unknown Verified 08/28/17 17:26 Oxycodone [From Percocet] Allergy unknown Verified 08/28/17 17:26 tramadol Allergy Anaphylaxis Verified 08/28/17 17:26 Date of admission: 11/23/17 18:07 Primary care physician: Mandi Hsieh CNP Consults: 11/22/17 01:29 Consult to Physical Therapy [CONS] Routine Comment: Evaluate, develop and implement POC Reason for Consult: mechanical fall Does patient have active BEDREST order?: No Is patient medically & hemodynamically stable?: Yes Patient assessed for mobility or mobilized this visit?: No 11/22/17 12:09 Consult to Speech Therapy [CONS] Routine Comment: Evaluate, develop and implement POC Reason for Consult: evaluate swallow, PO intake Call Completed: No 11/22/17 12:46 Consult to Occupational Therapy [CONS] Routine Comment: Evaluate, develop and implement POC Reason for Consult: weakness, deconditioning Does patient have active BEDREST order?: No Is patient medically & hemodynamically stable?: Yes 11/22/17 13:51 Consult to Manager Developmental [CONS] Routine Reason for SW Consult: discharge planning Discharging clinician: Syeda Estes Anticipated date of discharge: 11/26/17 - Constitutional Vitals: Temp Pulse Resp BP Pulse Ox 96.8 F L 60 16 153/79 97 11/26/17 12:01 11/26/17 12:01 11/26/17 12:01 11/26/17 12:01 11/26/17 12:01 General appearance: Present: cooperative, A&O X 1, pleasant, no acute distress, underweight Exam: GEN: Pt seen and examined at bedside; frail appearing; AOx1 (to person, but not place nor time); in NAD; Vitals stable NECK: No lymphadenopathy; Supple; Full ROM CARDIO: RRR, No murmurs, rubs, gallops; S1 and S2 present RESP: CTAB; no wheezes, rales, rhonchi ABD: soft, nontender, non distended SKIN: Multiple lacerations to face on right side repaired with sutures; various stages of bruising; abrasions to upper extremities MSK: No swelling, ertythema, lacerations of lower extremities; abrasions of b/l upper extremities NEURO: CN II - XII intact; PSYCH: AOx1; Normal mood and affect - Patient Status Disposition: Transfer SNF Condition: Fair Functional capacity at discharge: wheelchair bound Overall status at discharge: patient is progressing back to baseline - Discharge Instructions Instructions: Amoxicillin/Clavulanate Potassium (By mouth), Chest Pain (DC), Urinary Tract Infection in Men (DC), Chronic Hypertension (DC), Fall Prevention (DC) Follow Up With: Mandi Hsieh CNP [Primary Care Provider] - 11/28/17 2:15 pm () - Diet and Activity Activity: as per physical therapy Diet: other (Per speech therapy, plan to advance to thin liquid diet) - VTE Documentation of Mechanical Device: Intermittent pneumatic compression device <Judy Koo - Last Filed: 11/26/17 16:55> Orders not resulted at time of discharge: Pending orders 11/21/17 16:20 CT 3D reconstruction [CT] Stat - Discharge Diagnosis (1) Nasal fracture Status: Acute Qualifiers: Encounter type: initial encounter Fracture type: closed Qualified Code(s): S02.2XXA - Fracture of nasal bones, initial encounter for closed fracture (2) Facial laceration Status: Acute Qualifiers: Encounter type: initial encounter Qualified Code(s): S01.81XA - Laceration without foreign body of other part of head, initial encounter (3) Fall Status: Acute Qualifiers: Encounter type: initial encounter Qualified Code(s): W19.XXXA - Unspecified fall, initial encounter (4) Hypertension Status: Chronic Qualifiers: Hypertension type: essential hypertension Qualified Code(s): I10 - Essential (primary) hypertension (5) DVT prophylaxis Status: Chronic (6) Dislocation, finger Status: Resolved Qualifiers: Encounter type: initial encounter Qualified Code(s): S63.259A - Unspecified dislocation of unspecified finger, initial encounter (7) Foreign body, eye Status: Acute Qualifiers: Encounter type: initial encounter Laterality: right Qualified Code(s): T15.91XA - Foreign body on external eye, part unspecified, right eye, initial en counter (8) Dehydration Status: Resolved (9) Dementia Status: Chronic Qualifiers: Dementia type: Alzheimer's disease Alzheimer's disease onset: late-onset Dementia behavioral disturbance: without behavioral disturbance Qualified Code(s): G30.1 - Alzheimer's disease with late onset; F02.80 - Dementia in other diseases classified elsewhere without behavioral disturbance (10) UTI (urinary tract infection) Status: Resolved Qualifiers: Urinary tract infection type: acute cystitis Hematuria presence: without hematuria Qualified Code(s): N30.00 - Acute cystitis without hematuria (11) CKD (chronic kidney disease) Status: Resolved Qualifiers: Chronic kidney disease stage: stage 3 (moderate) Qualified Code(s): N18.3 - Chronic kidney disease, stage 3 (moderate) Hospital course: Mr. Gore is a 87 year old male - Time Spent with Patient Total time spent providing and/or coordinating discharge services: Date of admission: 11/23/17 18:07 Primary care physician: Mandi Hsieh CNP Consults: 11/22/17 01:29 Consult to Physical Therapy [CONS] Routine Comment: Evaluate, develop and implement POC Reason for Consult: mechanical fall Does patient have active BEDREST order?: No Is patient medically & hemodynamically stable?: Yes Patient assessed for mobility or mobilized this visit?: No 11/22/17 12:09 Consult to Speech Therapy [CONS] Routine Comment: Evaluate, develop and implement POC Reason for Consult: evaluate swallow, PO intake Call Completed: No 11/22/17 12:46 Consult to Occupational Therapy [CONS] Routine Comment: Evaluate, develop and implement POC Reason for Consult: weakness, deconditioning Does patient have active BEDREST order?: No Is patient medically & hemodynamically stable?: Yes 11/22/17 13:51 Consult to Manager Developmental [CONS] Routine Reason for SW Consult: discharge planning - Constitutional Vitals: Temp Pulse Resp BP Pulse Ox 97.0 F L 66 17 147/87 97 11/26/17 15:47 11/26/17 15:47 11/26/17 15:47 11/26/17 15:47 11/26/17 15:47 - Attending Attestation I examined this patient and my medical decision-making was reviewed with the Resident Physician Dr. Estes. I agree with the documented findings, disposition and treatment plan as described except to the extent set forth below. Mr. Gore is a 87 year old male with a past medical history of arthritis, skin cancer, CVA, hypertension, Alzheimer's presented to the emergency department after a mechanical fall outside his primary care physician's office. On presentation to the emergency department he was found to have multiple abrasions on the extremities, lacerations on the face. Hand x-ray demonstrated a dislocation of the right fourth proximal interphalangeal joint. This was externally reduced and re imaged in alignment and placement in a splint. Chest x-ray and cervical spine CT demonstrated no acute process. Head CT demonstrated chronic atrophic changes without acute process. CT of the face demonstrated right scalp contusion and right periorbital swelling, comminuted displaced nasal bone and right maxillary frontal process fractures. 3 mm radiodensity along the inferolateral margin of the right globe noticed. Patient was evaluated by ENT who recommend to continue IV abx for 10 days and follow-up with them as an outpatient, no surgical interventions recommended. Patient is evaluated by sp eech started him on pureed / mechanically soft Diet. Today He is more alert, awake and Oriented x 3. Pain is tolerable with current meds.He PO intake also better today . Medically stable to d/c ECF today. SW/ CM working with family. Switched to PO abx Augmentin 5 more days. HEENT: multiple facial lacerations and ecchymosis. Soft tissue swelling. Able to move eyes without pain. Cardiac: RRR, no murmur, +S1/S2 Pulmonary: Diminished BS b/l, no wheezes, rales or rhonchi
--- NOTE | 2017-11-26 13:49 | Physician Discharge Referral ---
ExtendedCare Referral Info Transfer To: [facility] Provider in Charge after Transfer: PCP Institutional Level of Care: Skilled - Diagnosis (1) Facial laceration Status: Acute (2) Fall Status: Acute (3) Foreign body, eye Status: Acute (4) Nasal fracture Status: Acute (5) Dementia Status: Chronic (6) Hypertension Status: Chronic (7) CKD (chronic kidney disease) Status: Resolved (8) Dehydration Status: Resolved (9) Dislocation, finger Status: Resolved (10) UTI (urinary tract infection) Status: Resolved - Transfer Medications Prescriptions: Amoxicillin/Clavulanate [Augmentin] 875 mg PO BIDWM 5 Days #9 tablet Home Medications: Aspirin Enteric Coated [Aspirin EC] 81 mg PO QAM 11/12/14 [History] Cholecalciferol (Vitamin D3) [Vitamin D3] 1,000 unit PO BID 11/21/17 [History] Donepezil HCl [Donepezil HCl Odt] 5 mg PO HS 11/21/17 [History] Donepezil HCl [Donepezil HCl Odt] 10 mg SL HS 11/21/17 [History] Ibuprofen [Advil] 200 mg PO DAILY PRN 11/21/17 [History] Pravastatin Sodium 10 mg PO DAILY 11/21/17 [History] Quetiapine Fumarate [Seroquel] 25 mg PO HS 11/21/17 [History] Thiamine HCl [Vitamin B-1] 50 mg PO DAILY 11/21/17 [History] Amoxicillin/Clavulanate [Augmentin] 875 mg PO BIDWM 5 Days #9 tablet 11/26/17 [Rx] Metoprolol [Lopressor] 25 mg PO BID tablet 11/26/17 [Rx] Allergies/Adverse Reactions: Allergy/AdvReac Type Severity Reaction Status Date / Time codeine Allergy unknown Verified 08/28/17 17:26 Oxycodone [From Percocet] Allergy unknown Verified 08/28/17 17:26 tramadol Allergy Anaphylaxis Verified 08/28/17 17:26 - Respiratory Orders Smoking Cessation: Smoking cessation has been advised. For more information, call the [place] Tobacco Quit Line at 6-216-KTCF-NOW. CERTIFICATION: I certify that the transfer of the above named patient to an Extended Care Facility is necessary for the continuing treatment of the diagnosis listed. The above information is true and accurate reflection of patient's current condition. Confidential - Redisclosure prohibited without a patient's written consent.
--- NOTE | 2017-11-26 14:40 | Physician Discharge Referral ---
ExtendedCare Referral Info Transfer To: ECF Provider in Charge after Transfer: PCP Institutional Level of Care: Skilled - Diagnosis (1) Nasal fracture Status: Acute (2) Facial laceration Status: Acute (3) Fall Status: Acute (4) Hypertension Status: Chronic (5) DVT prophylaxis Status: Acute (6) Dislocation, finger Status: Resolved (7) Foreign body, eye Status: Acute (8) Dehydration Status: Resolved (9) Dementia Status: Chronic (10) UTI (urinary tract infection) Status: Ruled-out (11) CKD (chronic kidney disease) Status: Resolved - Transfer Medications Home Medications: Aspirin Enteric Coated [Aspirin EC] 81 mg PO QAM 11/12/14 [History] Cholecalciferol (Vitamin D3) [Vitamin D] 1,000 unit PO BID 11/21/17 [History] Donepezil HCl [Donepezil HCl Odt] 5 mg PO HS 11/21/17 [History] Donepezil HCl [Donepezil HCl Odt] 10 mg SL HS 11/21/17 [History] Ibuprofen [Advil] 200 mg PO DAILY PRN 11/21/17 [History] Pravastatin Sodium 10 mg PO DAILY 11/21/17 [History] Quetiapine Fumarate [Seroquel] 25 mg PO HS 11/21/17 [History] Thiamine HCl [Vitamin B-1] 50 mg PO DAILY 11/21/17 [History] Allergies/Adverse Reactions: Allergy/AdvReac Type Severity Reaction Status Date / Time codeine Allergy unknown Verified 08/28/17 17:26 Oxycodone [From Percocet] Allergy unknown Verified 08/28/17 17:26 tramadol Allergy Anaphylaxis Verified 08/28/17 17:26 - Respiratory Orders Smoking Cessation: Smoking cessation has been advised. For more information, call the [place] Tobacco Quit Line at 0-729-SWRANOW. CERTIFICATION: I certify that the transfer of the above named patient to an Extended Care Facility is necessary for the continuing treatment of the diagnosis listed. The above information is true and accurate reflection of patient's current condition. Confidential - Redisclosure prohibited without a patient's written consent.
[2017-11-26 23:42] VITALS: BP 147/87
== END 2017-11-26 19:04 | DRG 158 ==
LOC: EMEROOARM 15:54 → 3BNU 15:54 → 2NENU 11-24 15:12
PROVIDERS: ADMIT Family Medicine; ATTEND Family Medicine